=== PATIENT | male | born 1950 | race Caucasian/White ===

== ENCOUNTER 2024-07-19 19:59 | Inpatient (IN) | payer OTHER, MEDICAID ==
[~2024-07-19] VITALS: Ht 177.8 cm; Wt 76.5 kg
[~2024-07-19 19:59] MED LIST: APIX5TAB PO; PANT40T PO
--- NOTE | 2024-07-19 20:08 | ED.PDOC ---
History of Present Illness HPI Comments 73 y/o M is BIBA for syncope. Per EMS, patient arrived home after being, recently, discharged from [facility] for possible PNA when he passed-out and collapsed in his driveway. He was found hypotensive. History of CHF. Time Seen by MD: 20:00 Primary Care Provider: NONE Reviewed Notes: Nurses Notes, Twisting Machine Operator Notes, Medications, Allergies Allergies: Coded Allergies: NO KNOWN ALLERGIES (Unverified , 04/04/12) Home Meds No Active Prescriptions or Reported Meds Information Source: Patient, Emergency Med Personnel Mode of Arrival: EMS Severity: Moderate Timing: Hours Duration: Minutes Prehospital treatment: 12 Lead EKG, Accucheck, Evaporator Repairer, Oxygen Past Medical History PAST MEDICAL HISTORY: CHF Surgical History: Denies all surgeries Family History Family History: Unobtainable Social History Smoker: Cigarettes, Greater Than 1 Pack/Day Alcohol: Denies ETOH Use Drugs: Denies Drug Use Lives In: Home All Other Systems: Reviewed and Negative (Comprehensive systems review obtained and negative except for what is stated in the HPI.) Physical Exam General Appearance: No Apparent Distress, Normal HEENT: Normal ENT Inspection, Pharynx Normal, TMs Normal Neck: Full Range of Motion, Non-Tender, Normal, Normal Inspection Respiratory: Chest Non-Tender, No Accessory Muscle Use, No Respiratory Distress, Rales (bilateral lung [place] ) Cardiovascular: No Edema, No JVD, No Murmur, No Gallop, Normal Peripheral Pulses, Regular Rate/Rhythm, Other (hypotensive ) Breast Exam: Deferred Gastrointestinal: No Organomegaly, Non Tender, No Pulsatile Mass, Normal Bowel Sounds, Soft Genitalia: Deferred Pelvic: Deferred Rectal: Deferred Extremities: No calf tenderness, Normal capillary refill, Normal inspection, Normal range of motion, Non-tender, No pedal edema Musculoskeletal : Apperance: Normal Neurologic: Alert, groundskeeper II-XII nml as Tested, No Motor Deficits, Normal Affect, Normal Mood, No Sensory Deficits Cerebellar Function: Normal Reflexes: Normal Skin: Dry, Normal Color, Warm Lymphatic: No Adenopathy Was a procedure done? Was a procedure done?: No EKG EKG : Pulse Rate (adult): 104 [place]: Normal Cardiac Rhythm: Afib Block: None Hypertrophy: None ST: Normal Differential Dx Considerations may include: hypotension, electrolyte imbalance, dehydrations, viral syndrome, PNA, URI, closed head injury, among others X-Ray, Labs, Meds, VS Vital Signs Date Time Temp Pulse Resp B/P (MAP) Pulse Ox O2 Delivery O2 Flow Rate FiO2 07/19/24 20:51 127 26 99 Nasal Cannula* 2 28 07/19/24 20:48 104 07/19/24 20:39 98.5 127 26 143/80 (101) 99 98.5 07/19/24 20:09 97.4 137 29 93/55 (68) 96 97.4 07/19/24 20:00 104 Lab Test 07/19/24 21:13 07/19/24 20:25 07/19/24 20:15 Range/Units Troponin I High Sensitivity 54 59 *H </=54 ng/L White Blood Count 4.9 4.4-10.8 10^3/uL Red Blood Count 3.48 L 4.5-5.90 10^6/uL Hemoglobin 10.4 L 13.5-17.5 g/dL Hematocrit 30.7 L 41.0-53.0 % Mean Corpuscular Volume 88.3 80.0-100.0 fL Mean Corpuscular Hemoglobin 29.8 28.0-32.0 pg Mean Corpuscular Hemoglobin Concent 33.8 32.0-36.0 g/dL Red Cell Distribution Width 18.3 H 11.8-14.3 % Platelet Count 37 L 140-450 10^3/uL Mean Platelet Volume 10.3 6.9-10.8 fL Neutrophils (%) (Auto) 80.3 H 37.0-80.0 % Lymphocytes (%) (Auto) 7.6 L 10.0-50.0 % Monocytes (%) (Auto) 11.4 0.0-12.0 % Eosinophils (%) (Auto) 0.1 0.0-7.0 % Basophils (%) (Auto) 0.6 0.0-2.0 % Neutrophils # (Auto) 3.9 1.6-8.6 10 ^3/uL Lymphocytes # (Auto) 0.4 0.4-5.4 10 ^3/uL Monocytes # (Auto) 0.6 0-1.3 10 ^3/uL Eosinophils # (Auto) 0 0-0.8 10 ^3/uL Basophils # (Auto) 0 0-0.2 10 ^3/uL Nucleated Red Blood Cells 0.7 % Platelet Estimate Decreased Large Platelets Few Hypochromasia (manual) Slight Anisocytosis (manual) Slight Target Cells Few Prothrombin Time 26.6 H 9.3-11.8 sec Prothrombin Time INR 2.78 H 0.9-1.15 Activated Partial Thromboplast Time 44.7 H 24.5-34.5 SEC Sodium Level 148 H 136-145 mmol/L Potassium Level 4.1 3.5-5.1 mmol/L Chloride Level 114 H 98-107 mmol/L Carbon Dioxide Level 22 20-31 mmol/L Anion Gap 12 5-15 Blood Urea Nitrogen 55 H 9-23 mg/dL Creatinine 2.83 H 0.700-1.30 mg/dL Glomerular Filtration Rate Calc 23 >90 mL/min BUN/Creatinine Ratio 19.4 10.0-20.0 Serum Glucose 121 H 74-106 mg/dL Lactic Acid Level 5.6 *H 0.4-2.0 mmol/L Calcium Level 8.8 8.7-10.4 mg/dL Total Bilirubin 3.1 H 0.2-1.0 mg/dL Aspartate Amino Transferase (AST) 43 H 13-40 U/L Alanine Aminotransferase (ALT) 78 H 7-40 U/L Alkaline Phosphatase 729 H 46-116 U/L B-Type Natriuretic Peptide 209.12 0-100 pg/mL Total Protein 4.3 L 5.7-8.2 g/dL Albumin 2.9 L 3.2-4.8 g/dL Blood Gas Specimen Type Venous Blood Gas Sample Site Vbg - n/a Blood Gas Patient Temperature 37.0 Arterial Blood Date Drawn Dwight Test N/a Venous Blood pH 7.345 7.320-7.430 Venous Blood pCO2 at Patient Temp 39.3 38.0-54.0 mmHg Venous Blood pO2 at Patient Temp < 36.5 23.0-48.0 mmHg Venous Blood HCO3 21.0 L 22.0-29.0 mmol/L Venous Blood Base Excess -4.3 L -2.0-3.0 mmol/L Blood Gas Liter Flow 0.00 Blood Gas Modality Room air Blood Gas Spontaneous Rate 18 FiO2 % 21.0 Specimen Drawn By Fauzia leyva rn Current Medications Medications (Trade) Dose Ordered Sig/Scarlet Route Start Time Stop Time Status Last Admin Sodium Chloride 1,000 ml @ 1,000 mls/hr Q1H ONCE IVB 07/19/24 20:15 07/19/24 21:14 DC 07/19/24 20:[address] [address] Ph: [phone] DIAGNOSTIC IMAGING Diagnostic Imaging Report : [id number] Signed PATIENT: JUAN DIEGO KUHN ACCT: [id number] UNIT: [id number] : 1950 LOC: ER ROOM / BED: / AGE / SEX: 73 / M ADM STATUS: REG ER SERVICE 02 ORDERING PHYSICIAN: ROBIN CANALES MD PROCEDURE(s): CXRP - CHEST PORTABLE REASON: SOB ORDER NUMBER(s): [id number], ACCESSION NUMBER(s): [id number] CHEST RADIOGRAPH REASON FOR EXAM: Shortness of breath COMPARISON: None TECHNIQUE: One view of the chest is provided FINDINGS: The cardiomediastinal silhouette is within normal limits for size. There is diffuse interstitial prominence, likely chronic changes. There is right basilar airspace disease concerning for pneumonia. There is small right pleural effusion. There is no pneumothorax. No acute osseous abnormality is identified. IMPRESSION: Right basilar airspace disease concerning for pneumonia. Small right pleural effusion. ATED BY: WILLI PENA MD DICTATED DATE/TIME: 07/19/242135 SIGNED BY: WILLI PENA MD SIGNED DATE/TIME: 07/19/242135 CC: Time of 1ST Reevaluation: 20:30 Reevaluation 1ST: Unchanged Patient Education/Counseling: Diagnosis, Treatment, Other (need for admission ) Family Education/Counseling: No Family Present Sepsis focused exam: focus exam completed (In the initial resuscitation at l east 30 mL/kg of IV crystalloid fluid was NOT given within the first 3 hr due to concerns of fluid overload), time: (2099) Sepsis Sepsis Reasesment Focused Exam Sepsis focused exam: focus exam completed (In the initial resuscitation at least 30 mL/kg of IV crystalloid fluid was NOT given within the first 3 hr due to concerns of fluid overload), time: (2099) Orders: Laboratory Tests 07/19/24 20:25: Lactic Acid Level 5.6 Departure 1 Departure Time of Disposition: 22:16 Impression: Primary Impression: Respiratory failure with hypoxia Additional Impressions: Pneumonia Acute renal injury Disposition: ADMITTED INPATIENT Admit to: ICU Condition: Guarded e-Prescriptions No Active Prescriptions or Reported Meds Comments Syncope with Pneumonia and Acute Kidney Injury Chief Complaint: Syncope History of Present Illness: 73-year-old male presents via EMS following a syncopal episode at home. Patient was recently discharged from [facility] earlier today. While getting out of his car in his driveway, he experienced sudden collapse with brief loss of consciousness. EMS found patient to be hypotensive with systolic BP of 93. Patient demonstrates respiratory distress with bilateral basilar crackles on examination. Review of Systems: Constitutional: Syncope, weakness Respiratory: Shortness of breath, respiratory distress Cardiovascular: Syncope Other systems: Deferred due to patient condition Medications: No current medications documented Past Medical History: Recent hospitalization at [facility] (discharged today) Vital Signs: Blood Pressure: Systolic 93 mmHg Physical Exam: Respiratory: Bilateral basilar crackles and rales noted Other systems: Limited exam due to acute presentation Lab Results: WBC: 4.9 with left shift (80% neutrophils) BUN: 55 Creatinine: 2.83 Lactic acid: 5.6 Troponin: 59 (borderline elevated) Total bilirubin: 3.1 Imaging and Other Relevant Results: Chest X-ray: - Small right pleural effusion - Right lower lobe infiltrate consistent with pneumonia Medical Decision Making: Summary Statement: 73-year-old male with syncope, respiratory failure with hypoxia, community-acquired pneumonia, and acute kidney injury requiring hospital admission. Problem List: 1. Syncope 2. Community-acquired pneumonia 3. Acute kidney injury 4. Respiratory failure 5. Elevated lactate Differential Diagnosis: 1. Sepsis secondary to pneumonia 2. Cardiogenic syncope 3. Volume depletion 4. Medication effect 5. Pulmonary embolism ED Course: Patient received IV fluid resuscitation and was started on broad- spectrum antibiotics including IV Rocephin and IV azithromycin. Given multiple organ system involvement and need for continued monitoring, admission was arranged. Assessment and Plan: 1. Syncope: - Likely multifactorial due to combination of infection, possible dehydration, and cardiopulmonary compromise - Continuous cardiac monitoring during admission 2. Community-acquired Pneumonia: - Started on IV Rocephin and azithromycin - Continue antibiotics and respiratory support 3. Acute Kidney Injury: - Likely pre-renal due to volume depletion and infection - IV fluid resuscitation initiated - Monitor urine output and serial creatinine 4. Respiratory Failure: - Supplemental oxygen as needed - Monitor oxygen saturation 5. Disposition: - Admit to hospital for continued management and monitoring Billing Information: ICD-10: R55 - Syncope and collapse ICD-10: J18.9 - Pneumonia, unspecified organism ICD-10: N17.9 - Acute kidney failure, unspecified ICD-10: J96.00 - Acute respiratory failure Critical Care Note Critical Care Time?: Yes (35 min-critical care time only) Critical care comment: Total critical care time: Approximately 36 minutes Due to a high probability of clinically significant, life threatening deterioration, the patient required my highest level of preparedness to intervene emergently and I personally spent this critical care time directly and personally managing the patient. This critical care time included obtaining a history; examining the patient; pulse oximetry; ordering and review of studies; arranging urgent treatment with development of a management plan; evaluation of patient's response to treatment; frequent reassessment; and, discussions with other providers. This critical care time was performed to assess and manage the high probability of imminent, life-threatening deterioration that could result in multi-organ failure. It was exclusive of separately billable procedures and treating other patients. Stability Stability form required: No Heart Score Heart Score: Heart Score Response (Comments) Value History Moderate Suspicious 1 EKG Repolarization Disturb 1 Age >65 2 Risk Factors 1 or 2 risk factors 1 Troponin 1-2 x's Normal limit 1 Total 6 I personally scribed for ROBIN CANALES MD ([email or web address]) on 07/19/24 at 20:08. Electronically submitted by Aleln Ponce ([email or web address]). I personally scribed for ROBIN CANALES MD ([email or web address]) on 07/19/24 at 20:48. Electronically submitted by Allen Ponce ([email or web address]). I personally scribed for ROBIN CANALES MD ([email or web address]) on 07/19/24 at 22:11. Electronically submitted by Allen Ponce [email or web address]). ROBIN CANALES MD Jul 19, 2024 20:08
[2024-07-19] MEDS: SODIUM CHLORIDE 0.9% 1,000 ML IVB ONE (20:15)
[2024-07-19 20:46] LABS: Basophils # (auto) 0 10 ^3/uL (0-0.2); Eosinophils # (auto) 0 10 ^3/uL (0-0.8); Lymphocytes # (auto) 0.4 10 ^3/uL (0.4-5.4); Platelet Count (auto) 37 10^3/uL (140-450)
[2024-07-19 20:49] LABS: Basophils % (auto) 0.6 % (0.0-2.0); Eosinophils % (auto) 0.1 % (0.0-7.0); Hematocrit 30.7 % (41.0-53.0); Hemoglobin 10.4 g/dL (13.5-17.5); Lymphocytes % (auto) 7.6 % (10.0-50.0); Mean Corpuscular Hemoglobin 29.8 pg (28.0-32.0); Mean Corpuscular Hgb Conc. 33.8 g/dL (32.0-36.0); Mean Corpuscular Volume 88.3 fL (80.0-100.0); Monocytes # (auto) 0.6 10 ^3/uL (0-1.3); Monocytes % (auto) 11.4 % (0.0-12.0); Neutrophils # (auto) 3.9 10 ^3/uL (1.6-8.6); Neutrophils % (auto) 80.3 % (37.0-80.0); Nucleated Red Blood Cells % 0.7 %; Red Blood Cells 3.48 10^6/uL (4.5-5.90); Red Cell Distribution Width 18.3 % (11.8-14.3); White Blood Cell 4.9 10^3/uL (4.4-10.8)
[2024-07-19 20:51] VITALS: PULSE 127; RESP 26; O2SAT 99
[2024-07-19 20:54] LABS: Anion Gap 12 (5-15); BUN/Creatinine Ratio 19.4 (10.0-20.0); Calcium 8.8 mg/dL (8.7-10.4); Carbon Dioxide 22 mmol/L (20-31); INR 2.78 (0.9-1.15); Partial Thromboplastin Time 44.7 SEC (24.5-34.5); Potassium 4.1 mmol/L (3.5-5.1); Prothrombin Time 26.6 sec (9.3-11.8)
[2024-07-19 21:08] LABS: Alanine Aminotransferase 78 U/L (7-40); Albumin 2.9 g/dL (3.2-4.8); Alkaline Phosphatase 729 U/L (46-116); Aspartate Aminotransferase 43 U/L (13-40); Bilirubin, Total 3.1 mg/dL (0.2-1.0); Blood Urea Nitrogen 55 mg/dL (9-23); Chloride 114 mmol/L (98-107); Glucose 121 mg/dL (74-106); Sodium 148 mmol/L (136-145); Total Protein 4.3 g/dL (5.7-8.2)
[2024-07-19 21:12] LABS: Lactic Acid w/Reflex 5.6 mmol/L (0.4-2.0)
--- NOTE | 2024-07-19 21:39 | DVH ---
CHEST RADIOGRAPH REASON FOR EXAM: Shortness of breath COMPARISON: None TECHNIQUE: One view of the chest is provided FINDINGS: The cardiomediastinal silhouette is within normal limits for size. There is diffuse interst itial prominence, likely chronic changes. There is right basilar airspace disease concerning for pne umonia. There is small right pleural effusion. There is no pneumothorax. No acute osseous abnormalit y is identified. IMPRESSION: Right basilar airspace disease concerning for pneumonia. Small right pleural effusion.
[2024-07-19 22:06] LABS: Anisocytosis Slight; Hypochromia Slight; Large Platelets FEW; Platelet Estimate Decreased; Target Cell FEW
[2024-07-19] MEDS: AZITHROMYCIN 500MG/ 250ML 250 ML IV ONE (22:38)
[2024-07-19] MEDS: cefTRIAXone 1GM/50ML D5W 50 ML IV ONE (22:38)
[2024-07-19] MEDS ORDERED: NITROGLYCERIN 0.4 MG SL TAB SL PRN (23:15)
[2024-07-19] MEDS ORDERED: MORPHINE SULFATE INJ 2 MG/ml SYRG IV PRN (23:15)
[2024-07-19] MEDS ORDERED: ACETAMINOPHEN 325 MG TAB PO PRN (23:15)
[2024-07-19 23:23] VITALS: BP 82/56; PULSE 77; RESP 18; TEMP 98.5; O2SAT 99
[2024-07-19] MEDS: ALBUMIN 5% 250 ML IV ONE (23:38)
[2024-07-20] VITALS (10 sets, daily range): BP systolic 108–119; BP diastolic 63–72; PULSE 74–80; RESP 16–20; TEMP 97.4–98; O2SAT 90–100
--- NOTE | 2024-07-20 03:04 | DVHHP2 ---
History of Present Illness Reason for Visit: Shortness for breath History of Present Illness 73-year-old male presents for evaluation of shortness for breath. Patient presented with complaints of dizziness and near syncopal episode. On arrival patient was noted to be in AFib with a rapid ventricular response. His blood pressure was in the 70s. Patient has spontaneously converted currently normal sinus rhythm blood pressure is marginal at the 90s. Reports shortness for breath with a productive cough. Denies fever or chills. No other acute complaints. Past Medical History CHF, hypertension, atrial fibrillation Past Surgical History Denies Family History Noncontributory Smoke: <1 pack per day ALCOHOL: none Drugs: None Lives: with Family Review of Systems Review of Systems Review of systems are currently negative otherwise addressed in HPI. Allergies: Coded Allergies: NO KNOWN ALLERGIES (Unverified , 04/04/12) Medications Current Medications Medications Dose Ordered Sig/Scarlet Route Start Time Stop Time Status Last Admin Dose Admin Ceftriaxone Sodium 50 ml @ 100 mls/hr DAILY@09 IV 07/20/24 09:00 Azithromycin 250 ml @ 125 mls/hr DAILY IV 07/20/24 10:00 UNV Amiodarone HCl 200 mg Q12HR PO 07/20/24 10:00 Pantoprazole Sodium 40 mg DAILY@0600 PO 07/20/24 06:00 Apixaban 5 mg BID PO 07/20/24 10:00 UNV Albuterol 2.5 mg Q6HPRN PRN NEB 07/19/24 23:15 Ondansetron HCl 4 mg Q4HP PRN IV 07/19/24 23:15 Acetaminophen 650 mg Q6HP PRN PO 07/19/24 23:15 Nitroglycerin 0.4 mg Q5MINP PRN SL 07/19/24 23:15 Morphine Sulfate 2 mg Q30M PRN IV 07/19/24 23:15 Exam Vital Signs Vital Signs Date Time Temp Pulse Resp B/P (MAP) Pulse Ox O2 Delivery O2 Flow Rate FiO2 07/20/24 01:00 79 18 81/54 (63) 99 07/20/24 00:02 Nasal Cannula 3.0 07/20/24 00:02 32 07/19/24 23:23 98.5 98.5 Exam Gen: 73-year-old male in mild distress Skin: Warm, dry, normal color and texture, no rash. HEENT: Normocephalic atraumatic, mucous membranes moist and pink. Neck: Cervical and supraclavicular nodes normal without enlargement, trachea is midline, thyroid gland is normal without masses. Pulmonary: Clear to auscultation and percussion bilaterally. Cardiac: Regular rate and rhythm. No murmur Abdomen: Soft, nontender, nondistended, bowel sounds present all 4 quadrants, no guarding, no rigidity, no organomegaly. Extremities: No cyanosis, clubbing, no edema Neuro: Cranial nerves II through XII grossly intact, normal affect and speech, no focal motor deficits. Labs/Xrays ORDERING PHYSICIAN: ROBIN CANALES MD PROCEDURE(s): CXRP - CHEST PORTABLE REASON: SOB ORDER NUMBER(s): [id number], ACCESSION NUMBER(s): [id number] CHEST RADIOGRAPH REASON FOR EXAM: Shortness of breath COMPARISON: None TECHNIQUE: One view of the chest is provided FINDINGS: The cardiomediastinal silhouette is within normal limits for size. There is diffuse interstitial prominence, likely chronic changes. There is right basilar airspace disease concerning for pneumonia. There is small right pleural effusion. There is no pneumothorax. No acute osseous abnormality is identified. IMPRESSION: Right basilar airspace disease concerning for pneumonia. Small right pleural effusion. Labs Test 07/20/24 00:18 07/19/24 22:15 07/19/24 20:25 07/19/24 20:15 Range/Units Troponin I High Sensitivity 57 *H </=54 ng/L Lactic Acid Level 2.8 *H 0.4-2.0 mmol/L White Blood Count 4.9 4.4-10.8 10^3/uL Red Blood Count 3.48 L 4.5-5.90 10^6/uL Hemoglobin 10.4 L 13.5-17.5 g/dL Hematocrit 30.7 L 41.0-53.0 % Mean Corpuscular Volume 88.3 80.0-100.0 fL Mean Corpuscular Hemoglobin 29.8 28.0-32.0 pg Mean Corpuscular Hemoglobin Concent 33.8 32.0-36.0 g/dL Red Cell Distribution Width 18.3 H 11.8-14.3 % Platelet Count 37 L 140-450 10^3/uL Mean Platelet Volume 10.3 6.9-10.8 fL Neutrophils (%) (Auto) 80.3 H 37.0-80.0 % Lymphocytes (%) (Auto) 7.6 L 10.0-50.0 % Monocytes (%) (Auto) 11.4 0.0-12.0 % Eosinophils (%) (Auto) 0.1 0.0-7.0 % Basophils (%) (Auto) 0.6 0.0-2.0 % Neutrophils # (Auto) 3.9 1.6-8.6 10 ^3/uL Lymphocytes # (Auto) 0.4 0.4-5.4 10 ^3/uL Monocytes # (Auto) 0.6 0-1.3 10 ^3/uL Eosinophils # (Auto) 0 0-0.8 10 ^3/uL Basophils # (Auto) 0 0-0.2 10 ^3/uL Nucleated Red Blood Cells 0.7 % Platelet Estimate Decreased Large Platelets Few Hypochromasia (manual) Slight Anisocytosis (manual) Slight Target Cells Few Prothrombin Time 26.6 H 9.3-11.8 sec Prothrombin Time INR 2.78 H 0.9-1.15 Activated Partial Thromboplast Time 44.7 H 24.5-34.5 SEC Sodium Level 148 H 136-145 mmol/L Potassium Level 4.1 3.5-5.1 mmol/L Chloride Level 114 H 98-107 mmol/L Carbon Dioxide Level 22 20-31 mmol/L Anion Gap 12 5-15 Blood Urea Nitrogen 55 H 9-23 mg/dL Creatinine 2.83 H 0.700-1.30 mg/dL Glomerular Filtration Rate Calc 23 >90 mL/min BUN/Creatinine Ratio 19.4 10.0-20.0 Serum Glucose 121 H 74-106 mg/dL Calcium Level 8.8 8.7-10.4 mg/dL Total Bilirubin 3.1 H 0.2-1.0 mg/dL Aspartate Amino Transferase (AST) 43 H 13-40 U/L Alanine Aminotransferase (ALT) 78 H 7-40 U/L Alkaline Phosphatase 729 H 46-116 U/L B-Type Natriuretic Peptide 209.12 0-100 pg/mL Total Protein 4.3 L 5.7-8.2 g/dL Albumin 2.9 L 3.2-4.8 g/dL Blood Gas Specimen Type Venous Blood Gas Sample Site Vbg - n/a Blood Gas Patient Temperature 37.0 Arterial Blood Date Drawn Dwight Test N/a Venous Blood pH 7.345 7.320-7.430 Venous Blood pCO2 at Patient Temp 39.3 38.0-54.0 mmHg Venous Blood pO2 at Patient Temp < 36.5 23.0-48.0 mmHg Venous Blood HCO3 21.0 L 22.0-29.0 mmol/L Venous Blood Base Excess -4.3 L -2.0-3.0 mmol/L Blood Gas Liter Flow 0.00 Blood Gas Modality Room air Blood Gas Spontaneous Rate 18 FiO2 % 21.0 Specimen Drawn By Fauzia leyva rn Assessment/Plan Assessment/Plan Assessment Acute hypoxic respiratory failure Community-acquired pneumonia Sepsis Acute kidney injury Secondary coagulopathy Plan Admit the patient to telemetry to the hospitalist Rocephin/azithromycin Med nebs Resume home medications Hold antihypertensives Continue treatment per orders Plan discussed with: Patient My Orders Orders - RITCHIEAMYPEPE AGACNP Procedure Category Date Status Time Ceftriaxone 1gm/50ml PHA 07/20/24 In Process D5w (Rocephin) 09:00 Azithromycin 500mg/ PHA 07/20/24 Pending 250ml (Zithromax 50 10:00 Amiodarone Tablet PHA 07/20/24 In Process (Cordarone Tablet) 10:00 Pantoprazole Tablet PHA 07/20/24 In Process (Protonix Tablet) 06:00 Apixaban (Eliquis) PHA 07/20/24 Pending 10:00 Albuterol Medneb PHA 07/19/24 In Process (Ventolin Medneb) 23:15 Renal DIET 07/20/24 Transmitted Standard(2gna,3gk,Lopho) Breakfast Ondansetron Hcl PHA 07/19/24 In Process (Zofran) 23:15 Complete Blood Count LAB 07/20/24 Logged 04:00 Comprehensive LAB 07/20/24 Logged Metabolic Panel 04:00 Echo 2d Mode Cardiac US 07/19/24 Logged DOP 23:05 Condition: Fair IVAN 07/19/24 In Process 23:05 Acetaminophen Tablet PHA 07/19/24 In Process (Tylenol Tablet) 23:15 Bedrest With Bathroom IVAN 07/19/24 In Process Privileg 23:05 Nitroglycerin PHA 07/19/24 In Process Sublingual (Ntrostat 23:15 Morphine Sulfate PHA 07/19/24 In Process Injection 23:15 Stat Ekg For Chest IVAN 07/19/24 In Process Pain 23:05 Notify Md Of Changes IVAN 07/19/24 In Process From Base 23:05 Sales Planning Coordinator For IVAN 07/19/24 In Process 24 Hours 23:05 Emergency Dysrhythmia IVAN 07/19/24 In Process Protocol 23:05 Rhythm Strips Once IVAN 07/19/24 In Process Every Shift 23:05 Oxygen By Nasal RT 07/19/24 Transmitted Cannula 23:05 Respiratory Culture SILVERIO 07/19/24 Logged W/ Gs 23:05 Admit ADMIT 07/19/24 Verified 23:05 Date of Service: Jul 19, 2024 Billing Provider: AMY RITCHIE Common Visit Codes: [id number] INP/OBS CARE (HIGH) AMY RITCHIE Jul 20, 2024 03:04
[2024-07-20] MEDS: PANTOPRAZOLE 40 MG TAB PO SCH (06:02)
[2024-07-20 06:32] LABS: Anion Gap 10 (5-15); Aspartate Aminotransferase 37 U/L (13-40); BUN/Creatinine Ratio 19.2 (10.0-20.0); Carbon Dioxide 24 mmol/L (20-31); Glucose 102 mg/dL (74-106); Potassium 3.9 mmol/L (3.5-5.1)
[2024-07-20 06:41] LABS: Alanine Aminotransferase 56 U/L (7-40); Albumin 2.6 g/dL (3.2-4.8); Alkaline Phosphatase 545 U/L (46-116); Bilirubin, Total 2.8 mg/dL (0.2-1.0); Blood Urea Nitrogen 51 mg/dL (9-23); Calcium 8.2 mg/dL (8.7-10.4); Chloride 114 mmol/L (98-107); Sodium 148 mmol/L (136-145); Total Protein 3.8 g/dL (5.7-8.2)
[2024-07-20 06:43] LABS: Basophils # (auto) 0 10 ^3/uL (0-0.2); Eosinophils # (auto) 0 10 ^3/uL (0-0.8); Eosinophils % (auto) 0.1 % (0.0-7.0); Hemoglobin 7.9 g/dL (13.5-17.5); Lymphocytes # (auto) 0.3 10 ^3/uL (0.4-5.4); Monocytes # (auto) 0.5 10 ^3/uL (0-1.3); Platelet Count (auto) 40 10^3/uL (140-450)
[2024-07-20 06:47] LABS: Basophils % (auto) 0.2 % (0.0-2.0); Hematocrit 23.1 % (41.0-53.0); Lymphocytes % (auto) 8.3 % (10.0-50.0); Mean Corpuscular Hemoglobin 30.4 pg (28.0-32.0); Mean Corpuscular Hgb Conc. 34.2 g/dL (32.0-36.0); Mean Corpuscular Volume 88.7 fL (80.0-100.0); Monocytes % (auto) 13.2 % (0.0-12.0); Neutrophils # (auto) 2.9 10 ^3/uL (1.6-8.6); Neutrophils % (auto) 78.2 % (37.0-80.0); Nucleated Red Blood Cells % 0.4 %; Red Cell Distribution Width 18.5 % (11.8-14.3); White Blood Cell 3.7 10^3/uL (4.4-10.8)
[2024-07-20] MEDS: cefTRIAXone 1GM/50ML D5W 50 ML IV SCH (09:18)
[2024-07-20 09:31] LABS: Urine Bacteria None Seen /hpf (None Seen)
[2024-07-20 09:43] LABS: Urine Amorphous Crystal FEW /hpf (None Seen); Urine Blood TRACE /uL (Negative); Urine Clarity Turbid (Clear); Urine Color Yellow (Yellow); Urine Protein, UAD Negative (Negative); Urine Specific Gravity 1.013 (1.001-1.035); Urine Squamous Epithelial Cell FEW /hpf (<5); Urine Urobilinogen Normal (Negative); Urine WBC 3 /HPF (0-3)
[2024-07-20] MEDS: APIXABAN 5 MG TAB PO SCH (10:00)
[2024-07-20] MEDS: AMIODARONE HCL 200 MG TAB PO SCH (10:18)
[2024-07-20] MEDS: AZITHROMYCIN 500MG/ 250ML 250 ML IV SCH (10:20)
--- NOTE | 2024-07-20 10:45 | ECG ---
[facility] Test Date: 2024-07-19 Test Time: 20:00:52 Pat Name: JUAN DIEGO KUHN Department: ED Room: [address] [place] [address] Gender: M Certified Marine Mechanic: YEN : 1950 Requested By: ROBIN CANALES Order Number: [id number] Reading MD: Dante Fu Measurements Intervals [place] Rate: 104 P: 0 ND: 0 QRS: -90 QRSD: 120 T: 83 QT: 359 QTc: 473 Interpretive Statements Atrial flutter IVCD, consider atypical RBBB Electronically Signed On 07-20-2024 14:59:29 PDT by Dante Fu Please click the below link to view image of tracing.
--- NOTE | 2024-07-20 14:29 | DVHSR ---
APPROVED REPORT EXAM: LIMITED Two-dimensional and M-mode echocardiogram. Blood Pressure: 81/54 mmHg INDICATION EF RISK FACTORS Height: 5' 10", Weight: 160 DIMENSIONS LVDd4.2 (3.8-5.7cm)LA (2D)3.7 (1.9-4.0cm)Aortic Root (2.0-3.7cm) LVDs2.9 (2.5-4.0cm)LA (MM) (1.9-4.0cm)Aortic Cusp Exc (1.5-2.0cm) EF (%) 57.0 (55-70%)Rt. Atrium4.0 (1.9-4.0cm)Asc. Aorta cm IVSd0.9 (0.7-1.1cm)RV (D) (1.8-2.4cm) PWd0.9 (0.7-1.1cm) Mitral Valve MitralMitral Stenosis E wave0.60m/sMV Mean GR.mmHg A wave0.70m/sMV Peak GR.mmHg E/A ratio0.92D MVAcm2 Aortic Valve Aortic ValveAortic Stenosis V10.70m/Mine Mean GR.4mmHg V21.40m/Mine Peak GR.8mmHg LVOT Diameter2.0 (1.8-2.4cm)Doppler AVA1.57cm2 Other Information Quality : Technically LimitedRhythm : Technically limited study due to body habitus. Conclusion Technically good study. Sinus rhythm. Normal chamber sizes. Valves are normal. EF of 60% with normal RV function. Dopplers unremarkable. No pericardial effusion masses or vegetations.
--- NOTE | 2024-07-20 16:45 | DVH ---
Technique: Real-time ultrasound imaging of the abdomen was performed with grayscale and color Doppler . Indication: Rule out liver disease Comparison: None Findings: Liver measures 17. cm. It is increased in echogenicity and echotexture without focal mass. Portal ve in is normal in caliber and demonstrates normal hepatopetal flow. Gallbladder demonstrates no evidence for cholelithiasis. There is no pericholecystic fluid. The wall thickness is normal. The common bile duct measures 4 mm. No intrahepatic biliary ductal dilatation. The right kidney measures 8.9 cm. There is no hydronephrosis or sonographic evidence of nephrolithias is. The visualized portion of the pancreas is unremarkable. The visualized portion of the IVC is unremarkable. Impression: 1. Echogenic liver which can be seen with hepatic steatosis, cirrhosis. 2. Hepatomegaly
--- NOTE | 2024-07-20 16:46 | DVH ---
Bilateral Chest Sonogram Date: 07/20/2024 03:58 PM Clinical history: Rt sided Pleural effusion Findings: Small bilateral pleural effusions.. IMPRESSION: 1. As above END IMPRESSION:
--- NOTE | 2024-07-20 17:06 | DVHPNRES ---
Progress Note Date Seen: Jul 20, 2024 Resident Creating Document: HUMPHREY CASTELAN RESIDENT Medical Necessity Reason Pt with a Central, PICC or Fol: No Subjective Review of Systems 73 M with a history of atrial fibrillation who presents with recent hospitalization for chest pain and newly diagnosed pneumonia. The patient was discharged from [facility] after a 5-day stay earlier this week but had to be readmitted due to a syncopal episode. He reports experiencing chest pain, which prompted the initial hospitalization at [facility]. During that stay, pneumonia was diagnosed, After discharge, while being picked up by his nephew and a friend, the patient experienced a blackout episode near their apartment. This led to calling an ambulance and subsequent readmission to the hospital. The patient mentions feeling weak , Regarding substance use, the patient reports quitting smoking about 3 months ago after a 50-year history of smoking half a pack per day. They also state they no longer drink alcohol, having previously consumed beer daily. The patient denies any history of recreational drug use. CONSTITUTIONAL: Denies weight loss, fever and chills. HEENT: Denies changes in vision and hearing. RESPIRATORY: Denies SOB and cough. CV: Denies palpitations and chest pain. GI: Denies abdominal pain, nausea, vomiting and diarrhea. : Denies dysuria and urinary frequency. MSK: Denies myalgia and joint pain. SKIN: Denies rash and pruritus. NEUROLOGICAL: Denies headache Objective vital signs Vital Sign Date Time Temp Pulse Resp B/P (MAP) Pulse Ox O2 Delivery O2 Flow Rate FiO2 07/20/24 15:51 98.0 80 20 119/64 (82) 98 98.0 07/20/24 08:30 Nasal Cannula* 2 28 Total Intake and Output 07/19/24 07/19/24 07/20/24 14:59 22:59 06:59 Intake Total 1000 ml 550 ml Balance 1000 ml 550 ml medications Current Medications Medications Dose Ordered Sig/Scarlet Route Start Time Stop Time Status Last Admin Dose Admin Ceftriaxone Sodium 50 ml @ 100 mls/hr DAILY@09 IV 07/20/24 09:00 07/20/24 09:18 100 MLS/HR Azithromycin 250 ml @ 125 mls/hr DAILY IV 07/20/24 10:00 07/20/24 10:20 125 MLS/HR Amiodarone HCl 200 mg Q12HR PO 07/20/24 10:00 07/20/24 10:18 200 MG Pantoprazole Sodium 40 mg DAILY@0600 PO 07/20/24 06:00 07/20/24 06:02 40 MG Apixaban 5 mg BID PO 07/20/24 10:00 Hold Albuterol 2.5 mg Q6HPRN PRN NEB 07/19/24 23:15 Ondansetron HCl 4 mg Q4HP PRN IV 07/19/24 23:15 Acetaminophen 650 mg Q6HP PRN PO 07/19/24 23:15 Nitroglycerin 0.4 mg Q5MINP PRN SL 07/19/24 23:15 Morphine Sulfate 2 mg Q30M PRN IV 07/19/24 23:15 Examination GENERAL: Not in acute distress. HEENT: EOMI, Moist mucous membranes. No scleral icterus. No cervical lymphadenopathy. LUNGS: Clear to auscultation bilaterally. No accessory muscle use. CARDIOVASCULAR: Regular rate and rhythm. No murmur. No JVD. ABDOMEN: Soft, nontender and nondistended. No palpable masses. EXTREMITIES: No edema. Nontender. SKIN: No rashes or lesions. Warm. NEUROLOGIC: Alert and oriented X3 laboratory and microbiology Laboratory Tests 07/20/24 05:20 Test 07/20/24 05:20 Range/Units Serum Glucose 102 74-106 mg/dL Problem List/Assessment/Plan Problem List/Assessment/Plan # Acute hypoxic respiratory failure due to Pneumonia # possible Gram-positive/Gram-negative bacterial pneumonia - CXR shows: Right basilar airspace disease concerning for pneumonia. Small right pleural effusion. - 2 L supplemental oxygen, patient was not on oxygen therapy at home. - Chest US: Small bilateral pleural effusions. - Continue Rocephin and azithromycin - Monitor oxygen saturation and continue oxygen therapy at 2 liters - Perform echocardiogram to assess cardiac function # Atrial Fibrillation, not RVR - Continue current blood thinner medication (specific medication not mentioned) - Arrange follow-up with a pin sticker after discharge for management of heart rate and overall cardiac care # possible acute on chronic systolic/diastolic heart failure - Chest US: Small bilateral pleural effusions.. - bilateral pedal edema present, bilateral pleural effusion presents - ordered echocardiogram - request medical record from [facility] # Recent Syncope, etiology unknown, most likely due to possible hypoxic respiratory failure - Monitor fluid status and encourage oral hydration if appropriate - Assess need for home oxygen therapy before discharge # Tobacco and Alcohol Use History - Encourage continued abstinence from smoking and alcohol - Consider referral for smoking cessation support if needed # elevated liver enzyme # thrombocytopenia # possible alcoholic liver disease - ordered liver ultrasound - we will follow up labs DVT prophylaxis: Eliquis for AFib, hold Eliquis due to thrombocytopenia GI prophylaxis: PPI Goal of care discussed with patient for 32 minutes: Full code Plan discussed with Dr. STODDARD Plan discussed with: Patient My Orders My Orders Orders - HUMPHREY CASTELAN RESIDENT Procedure Category Date Status Time Obtain Mr From Other ORDERS 07/20/24 Transmitted Facility 14:36 LIVER US 07/20/24 Resulted 14:36 Chest Ultrasound US 07/20/24 Resulted 14:36 Rapid Influenza A&B LAB 07/20/24 Logged 14:36 Covid19 Antigen Janee LAB 07/20/24 Logged Complete Blood Count LAB 07/21/24 Verified 04:00 Comprehensive LAB 07/21/24 Verified Metabolic Panel 04:00 Mrsa Screen SILVERIO 07/20/24 Uncollected 15:50 Date of Service: Jul 20, 2024 Billing Provider: LOLLY KUMAR MD Common Visit Codes: [id number] INP/OBS CARE(HIGH) HUMPHREY CASTELAN RESIDENT Jul 20, 2024 17:06 LOLLY KUMAR MD Aug 01, 2024 09:21
[2024-07-20 21:25] LABS: COVID19 ANTIGEN SOFIA FIA NEGATIVE (NEGATIVE); Rapid Influenza A Negative (Negative); Rapid Influenza B Negative (Negative)
[2024-07-21] VITALS (12 sets, daily range): BP systolic 92–141; BP diastolic 66–75; PULSE 69–85; RESP 16–18; TEMP 97.5–98.6; O2SAT 93–100
[2024-07-21 06:00] LABS: Basophils # (auto) 0 10 ^3/uL (0-0.2); Eosinophils # (auto) 0 10 ^3/uL (0-0.8); Eosinophils % (auto) 0.1 % (0.0-7.0); Hematocrit 24.6 % (41.0-53.0); Hemoglobin 8.4 g/dL (13.5-17.5); Lymphocytes # (auto) 0.3 10 ^3/uL (0.4-5.4); Monocytes # (auto) 0.5 10 ^3/uL (0-1.3); Neutrophils # (auto) 3.9 10 ^3/uL (1.6-8.6); Nucleated Red Blood Cells % 0.4 %; Red Blood Cells 2.79 10^6/uL (4.5-5.90); White Blood Cell 4.7 10^3/uL (4.4-10.8)
[2024-07-21 06:02] LABS: Basophils % (auto) 0.2 % (0.0-2.0); Lymphocytes % (auto) 6.2 % (10.0-50.0); Mean Corpuscular Volume 88.3 fL (80.0-100.0); Monocytes % (auto) 10.3 % (0.0-12.0); Neutrophils % (auto) 83.2 % (37.0-80.0); Platelet Count (auto) 48 10^3/uL (140-450); Red Cell Distribution Width 19.2 % (11.8-14.3)
[2024-07-21 06:23] LABS: Anion Gap 10 (5-15); BUN/Creatinine Ratio 18.7 (10.0-20.0); Calcium 8.8 mg/dL (8.7-10.4); Carbon Dioxide 25 mmol/L (20-31); Potassium 3.7 mmol/L (3.5-5.1)
[2024-07-21 06:24] LABS: Aspartate Aminotransferase 34 U/L (13-40)
[2024-07-21 06:26] LABS: Alanine Aminotransferase 62 U/L (7-40); Albumin 2.7 g/dL (3.2-4.8); Alkaline Phosphatase 699 U/L (46-116); Blood Urea Nitrogen 49 mg/dL (9-23); Chloride 115 mmol/L (98-107); Glucose 110 mg/dL (74-106); Sodium 150 mmol/L (136-145); Total Protein 4.1 g/dL (5.7-8.2)
[2024-07-21] MEDS: SOD CHL 0.45% 1,000 ML IV ONE (11:15)
--- NOTE | 2024-07-21 11:18 | DVHPNRES ---
Progress Note Date Seen: Jul 21, 2024 Resident Creating Document: HUMPHREY CASTELAN RESIDENT Medical Necessity Reason Pt with a Central, PICC or Fol: No Subjective Review of Systems Patient seen and examined at bedside, patient is still on all days 2 L of oxygen and feeling of mild shortness of breath, patient is feeling much better than before. Objective vital signs Vital Sign Date Time Temp Pulse Resp B/P (MAP) Pulse Ox O2 Delivery O2 Flow Rate FiO2 07/21/24 09:00 98.3 81 18 113/70 (84) 98 98.3 07/21/24 08:03 Nasal Cannula* 2 28 Total Intake and Output 07/20/24 07/20/24 07/21/24 15:00 23:00 07:00 Intake Total 300 ml 0 ml 400 ml Output Total 300 ml 0 ml Balance 0 ml 0 ml 400 ml medications Current Medications Medications Dose Ordered Sig/Scarlet Route Start Time Stop Time Status Last Admin Dose Admin Ceftriaxone Sodium 50 ml @ 100 mls/hr DAILY@09 IV 07/20/24 09:00 07/21/24 09:01 100 MLS/HR Azithromycin 250 ml @ 125 mls/hr DAILY IV 07/20/24 10:00 07/21/24 09:01 125 MLS/HR Amiodarone HCl 200 mg Q12HR PO 07/20/24 10:00 07/21/24 09:00 200 MG Pantoprazole Sodium 40 mg DAILY@0600 PO 07/20/24 06:00 07/21/24 05:13 40 MG Apixaban 5 mg BID PO 07/20/24 10:00 Albuterol 2.5 mg Q6HPRN PRN NEB 07/19/24 23:15 Ondansetron HCl 4 mg Q4HP PRN IV 07/19/24 23:15 Acetaminophen 650 mg Q6HP PRN PO 07/19/24 23:15 Nitroglycerin 0.4 mg Q5MINP PRN SL 07/19/24 23:15 Morphine Sulfate 2 mg Q30M PRN IV 07/19/24 23:15 Examination GENERAL: Not in acute distress. HEENT: EOMI, Moist mucous membranes. No scleral icterus. No cervical lymphadenopathy. LUNGS: Clear to auscultation bilaterally. No accessory muscle use. CARDIOVASCULAR: Regular rate and rhythm. No murmur. No JVD. ABDOMEN: Soft, nontender and nondistended. No palpable masses. EXTREMITIES: No edema. Nontender. SKIN: No rashes or lesions. Warm. NEUROLOGIC: Alert and oriented X3 laboratory and microbiology Laboratory Tests 07/21/24 04:35 Test 07/21/24 04:35 Range/Units Serum Glucose 110 H 74-106 mg/dL Microbiology Date/Time Source Procedure Growth Status 07/19/24 20:25 Blood Blood Culture - Preliminary NO GROWTH AFTER 24 HOURS OF INCUBATION. Resulted Problem List/Assessment/Plan Problem List/Assessment/Plan # Acute hypoxic respiratory failure due to Pneumonia # possible Gram-positive/Gram-negative bacterial pneumonia - CXR shows: Right basilar airspace disease concerning for pneumonia. Small right pleural effusion. - 2 L supplemental oxygen, patient was not on oxygen therapy at home. - Chest US: Small bilateral pleural effusions. - Continue Rocephin and azithromycin - Monitor oxygen saturation and continue oxygen therapy at 2 liters - Perform echocardiogram to assess cardiac function # Atrial Fibrillation, not RVR - Continue current blood thinner medication (specific medication not mentioned) - Arrange follow-up with a power wood sawyer after discharge for management of heart rate and overall cardiac care # possible acute on chronic systolic/diastolic heart failure - Chest US: Small bilateral pleural effusions.. - bilateral pedal edema present, bilateral pleural effusion presents - ordered echocardiogram - request medical record from [facility] # Recent Syncope, etiology unknown, most likely due to possible hypoxic respiratory failure - Monitor fluid status and encourage oral hydration if appropriate - Assess need for home oxygen therapy before discharge # Tobacco and Alcohol Use History - Encourage continued abstinence from smoking and alcohol - Consider referral for smoking cessation support if needed # elevated liver enzyme # thrombocytopenia # possible alcoholic liver disease - ordered liver ultrasound - we will follow up labs DVT prophylaxis: Eliquis for AFib, hold Eliquis due to thrombocytopenia GI prophylaxis: PPI Goal of care discussed with patient for 21 minutes: Full code Plan discussed with Dr. STODDARD Plan discussed with: Patient My Orders My Orders Orders - HUMPHREY CASTELAN RESIDENT Procedure Category Date Status Time Obtain Mr From Other ORDERS 07/20/24 Transmitted Facility 14:36 LIVER US 07/20/24 Resulted 14:36 Chest Ultrasound US 07/20/24 Resulted 14:36 Mrsa Screen SILVERIO 07/20/24 In Process 17:07 Metoprolol Tartrate PHA 07/21/24 Verified Tablet (Lopressor Ta 22:00 1/2 Ns PHA 07/21/24 Verified 11:15 Basic Metabolic Panel LAB 07/22/24 Verified 04:00 Complete Blood Count LAB 07/22/24 Verified 04:00 Date of Service: Jul 21, 2024 Billing Provider: LOLLY KUMAR MD Common Visit Codes: [id number] INP/OBS CARE(HIGH) HUMPHREY CASTELAN RESIDENT Jul 21, 2024 11:18 LOLLY KUMAR MD Aug 01, 2024 09:25
[2024-07-21] MEDS ORDERED: METO-289 PO (14:33)
[2024-07-21] MEDS ORDERED: AMIO200T33 PO (14:34)
[2024-07-21 18:42] LABS: Potassium 3.6 mmol/L (3.5-5.1)
[2024-07-21 18:43] LABS: Anion Gap 8 (5-15); Carbon Dioxide 28 mmol/L (20-31)
[2024-07-21 18:57] LABS: Blood Urea Nitrogen 47 mg/dL (9-23)
[2024-07-21 18:58] LABS: BUN/Creatinine Ratio 18.4 (10.0-20.0); Calcium 8.3 mg/dL (8.7-10.4); Chloride 112 mmol/L (98-107); Glucose 120 mg/dL (74-106); Sodium 148 mmol/L (136-145)
[2024-07-21] MEDS: METOPROLOL TARTRATE 25 MG TAB PO SCH (21:27)
[2024-07-22] VITALS (11 sets, daily range): BP systolic 125–147; BP diastolic 71–83; PULSE 64–78; RESP 16–18; TEMP 97.4–98.8; O2SAT 92–100
[2024-07-22 06:12] LABS: Basophils # (auto) 0 10 ^3/uL (0-0.2); Eosinophils # (auto) 0 10 ^3/uL (0-0.8); Hemoglobin 8.2 g/dL (13.5-17.5); Lymphocytes # (auto) 0.2 10 ^3/uL (0.4-5.4); Monocytes # (auto) 0.4 10 ^3/uL (0-1.3); Nucleated Red Blood Cells % 0.3 %
[2024-07-22 06:15] LABS: Basophils % (auto) 0.2 % (0.0-2.0); Eosinophils % (auto) 0.1 % (0.0-7.0); Hematocrit 24.2 % (41.0-53.0); Lymphocytes % (auto) 4.7 % (10.0-50.0); Mean Corpuscular Hemoglobin 30.4 pg (28.0-32.0); Mean Corpuscular Volume 89.4 fL (80.0-100.0); Monocytes % (auto) 8.9 % (0.0-12.0); Neutrophils % (auto) 86.1 % (37.0-80.0); Platelet Count (auto) 59 10^3/uL (140-450); Red Blood Cells 2.71 10^6/uL (4.5-5.90); Red Cell Distribution Width 21.1 % (11.8-14.3); White Blood Cell 4.7 10^3/uL (4.4-10.8)
[2024-07-22 06:52] LABS: Anion Gap 9 (5-15); Aspartate Aminotransferase 35 U/L (13-40); BUN/Creatinine Ratio 17.1 (10.0-20.0); Carbon Dioxide 27 mmol/L (20-31); Potassium 3.7 mmol/L (3.5-5.1)
[2024-07-22 07:06] LABS: Alanine Aminotransferase 58 U/L (7-40); Albumin 2.7 g/dL (3.2-4.8); Alkaline Phosphatase 711 U/L (46-116); Bilirubin, Total 3.4 mg/dL (0.2-1.0); Blood Urea Nitrogen 43 mg/dL (9-23); Calcium 8.3 mg/dL (8.7-10.4); Chloride 112 mmol/L (98-107); Glucose 128 mg/dL (74-106); Sodium 148 mmol/L (136-145); Total Protein 4.1 g/dL (5.7-8.2)
[2024-07-22] MEDS: FREE WATER PO SCH (12:00)
--- NOTE | 2024-07-22 12:03 | DVHPNRES ---
Progress Note Date Seen: Jul 22, 2024 Resident Creating Document: HUMPHREY CASTELAN RESIDENT Medical Necessity Reason Pt with a Central, PICC or Fol: No Subjective Review of Systems Patient seen and examined at bedside, patient is still on all days 2 L of oxygen and feeling of mild shortness of breath, patient is feeling much better than before. Objective vital signs Vital Sign Date Time Temp Pulse Resp B/P (MAP) Pulse Ox O2 Delivery O2 Flow Rate FiO2 07/22/24 10:00 95 Nasal Cannula* 2 28 07/22/24 09:37 72 144/76 07/22/24 08:30 97.8 16 97.8 Total Intake and Output 07/21/24 07/21/24 07/22/24 15:00 23:00 07:00 Intake Total 1550 ml 1650 ml Output Total 300 ml 450 ml Balance 1250 ml 1200 ml medications Current Medications Medications Dose Ordered Sig/Scarlet Route Start Time Stop Time Status Last Admin Dose Admin Ceftriaxone Sodium 50 ml @ 100 mls/hr DAILY@09 IV 07/20/24 09:00 07/22/24 09:36 100 MLS/HR Azithromycin 250 ml @ 125 mls/hr DAILY IV 07/20/24 10:00 07/22/24 09:36 125 MLS/HR Amiodarone HCl 200 mg Q12HR PO 07/20/24 10:00 07/22/24 09:36 200 MG Pantoprazole Sodium 40 mg DAILY@0600 PO 07/20/24 06:00 07/22/24 05:14 40 MG Apixaban 5 mg BID PO 07/20/24 10:00 Albuterol 2.5 mg Q6HPRN PRN NEB 07/19/24 23:15 Ondansetron HCl 4 mg Q4HP PRN IV 07/19/24 23:15 Acetaminophen 650 mg Q6HP PRN PO 07/19/24 23:15 Nitroglycerin 0.4 mg Q5MINP PRN SL 07/19/24 23:15 Morphine Sulfate 2 mg Q30M PRN IV 07/19/24 23:15 Metoprolol Tartrate 25 mg BID PO 07/21/24 22:00 07/22/24 09:37 25 MG Purified Water 250 ml Q6HR PO 07/22/24 12:00 Examination GENERAL: Not in acute distress. HEENT: EOMI, Moist mucous membranes. No scleral icterus. No cervical lymphadenopathy. LUNGS: Clear to auscultation bilaterally. No accessory muscle use. CARDIOVASCULAR: Regular rate and rhythm. No murmur. No JVD. ABDOMEN: Soft, nontender and nondistended. No palpable masses. EXTREMITIES: No edema. Nontender. SKIN: No rashes or lesions. Warm. NEUROLOGIC: Alert and oriented X3 laboratory and microbiology Laboratory Tests 07/22/24 05:18 Test 07/22/24 05:18 Range/Units Serum Glucose 128 H 74-106 mg/dL Microbiology Date/Time Source Procedure Growth Status 07/20/24 17:07 Nose MRSA Screen - Final Complete 07/19/24 20:25 Blood Blood Culture - Preliminary NO GROWTH AFTER 48 HOURS OF INCUBATION. Resulted Problem List/Assessment/Plan Problem List/Assessment/Plan # Acute hypoxic respiratory failure due to Pneumonia # possible Gram-positive/Gram-negative bacterial pneumonia - CXR shows: Right basilar airspace disease concerning for pneumonia. Small right pleural effusion. - 2 L supplemental oxygen, patient was not on oxygen therapy at home. - Chest US: Small bilateral pleural effusions. - Continue Rocephin and azithromycin - Monitor oxygen saturation and continue oxygen therapy at 2 liters - Perform echocardiogram to assess cardiac function # Atrial Fibrillation, not RVR - Continue current blood thinner medication (specific medication not mentioned) - Arrange follow-up with a assistant project manager after discharge for management of heart rate and overall cardiac care # possible acute on chronic systolic/diastolic heart failure - Chest US: Small bilateral pleural effusions.. - bilateral pedal edema present, bilateral pleural effusion presents - ordered echocardiogram - request medical record from [place] - start Lasix 20 mg b.i.d. # Recent Syncope, etiology unknown, most likely due to possible hypoxic respiratory failure - Monitor fluid status and encourage oral hydration if appropriate - Assess need for home oxygen therapy before discharge # Tobacco and Alcohol Use History - Encourage continued abstinence from smoking and alcohol - Consider referral for smoking cessation support if needed # elevated liver enzyme # thrombocytopenia # possible alcoholic liver disease - ordered liver ultrasound - we will follow up labs DVT prophylaxis: Eliquis for AFib, hold Eliquis due to thrombocytopenia GI prophylaxis: PPI Goal of care discussed with patient for 21 minutes: Full code Plan discussed with Dr. STODDARD Plan discussed with: Patient My Orders My Orders Orders - HUMPHREY CASTELAN RESIDENT Procedure Category Date Status Time Free Water PHA 07/22/24 In Process 12:00 Date of Service: Jul 22, 2024 Billing Provider: LOLLY KUMAR MD Common Visit Codes: [id number] INP/OBS CARE(HIGH) HUMPHREY CASTELAN RESIDENT Jul 22, 2024 12:03 LOLLY KUMAR MD Aug 01, 2024 09:29
[2024-07-22] MEDS: FUROSEMIDE 20 MG/2 ML VIAL IV ONE (17:21)
[2024-07-22] MEDS: ONDANSETRON HCL 4 MG/2 ML VIAL IV PRN (17:21)
[2024-07-23] VITALS (12 sets, daily range): BP systolic 122–138; BP diastolic 61–85; PULSE 60–87; RESP 16–18; TEMP 97.6–98.4; O2SAT 95–100
[2024-07-23 10:48] LABS: Basophils # (auto) 0 10 ^3/uL (0-0.2); Basophils % (auto) 0.1 % (0.0-2.0); Eosinophils # (auto) 0 10 ^3/uL (0-0.8); Lymphocytes # (auto) 0.2 10 ^3/uL (0.4-5.4); Mean Corpuscular Volume 90.7 fL (80.0-100.0); Monocytes # (auto) 0.5 10 ^3/uL (0-1.3); Neutrophils # (auto) 3.7 10 ^3/uL (1.6-8.6); Nucleated Red Blood Cells % 0.1 %; Potassium 3.9 mmol/L (3.5-5.1); Red Cell Distribution Width 22.3 % (11.8-14.3); White Blood Cell 4.4 10^3/uL (4.4-10.8)
[2024-07-23 10:49] LABS: Anion Gap 8 (5-15); Carbon Dioxide 30 mmol/L (20-31)
[2024-07-23 10:50] LABS: Calcium 8.4 mg/dL (8.7-10.4); Chloride 111 mmol/L (98-107); Sodium 149 mmol/L (136-145)
[2024-07-23 10:51] LABS: Eosinophils % (auto) 0.1 % (0.0-7.0); Hematocrit 23.3 % (41.0-53.0); Hemoglobin 7.9 g/dL (13.5-17.5); Lymphocytes % (auto) 4.6 % (10.0-50.0); Mean Corpuscular Hemoglobin 30.7 pg (28.0-32.0); Mean Corpuscular Hgb Conc. 33.8 g/dL (32.0-36.0); Neutrophils % (auto) 84.2 % (37.0-80.0); Platelet Count (auto) 71 10^3/uL (140-450); Red Blood Cells 2.56 10^6/uL (4.5-5.90)
[2024-07-23 10:54] LABS: BUN/Creatinine Ratio 16.9 (10.0-20.0); Blood Urea Nitrogen 39 mg/dL (9-23); Glucose 131 mg/dL (74-106)
[2024-07-23 11:12] LABS: INR 1.56 (0.9-1.15); Prothrombin Time 15.8 sec (9.3-11.8)
[2024-07-23] MEDS: FUROSEMIDE 20 MG/2 ML VIAL IV ONE (12:13)
--- NOTE | 2024-07-23 15:19 | DVHPNRES ---
Progress Note Date Seen: Jul 23, 2024 Resident Creating Document: HUMPHREY CASTELAN RESIDENT Medical Necessity Reason Pt with a Central, PICC or Fol: No Subjective Review of Systems Patient seen and examined at bedside, feeling better. Room air ABG was not done cause patient already had ABG done on [place] last week and a prescribed concentrator. Objective vital signs Vital Sign Date Time Temp Pulse Resp B/P (MAP) Pulse Ox O2 Delivery O2 Flow Rate FiO2 07/23/24 12:13 125/72 07/23/24 10:04 75 07/23/24 10:00 95 Room Air* 0 21 07/23/24 08:30 97.7 16 97.7 Total Intake and Output 07/22/24 07/22/24 07/23/24 15:00 23:00 07:00 Intake Total 300 ml 850 ml Output Total 850 ml Balance 300 ml 0 ml medications Current Medications Medications Dose Ordered Sig/Scarlet Route Start Time Stop Time Status Last Admin Dose Admin Ceftriaxone Sodium 50 ml @ 100 mls/hr DAILY@09 IV 07/20/24 09:00 07/23/24 09:04 100 MLS/HR Azithromycin 250 ml @ 125 mls/hr DAILY IV 07/20/24 10:00 07/23/24 09:47 125 MLS/HR Amiodarone HCl 200 mg Q12HR PO 07/20/24 10:00 07/23/24 09:04 200 MG Pantoprazole Sodium 40 mg DAILY@0600 PO 07/20/24 06:00 07/23/24 04:54 40 MG Apixaban 5 mg BID PO 07/20/24 10:00 Albuterol 2.5 mg Q6HPRN PRN NEB 07/19/24 23:15 Ondansetron HCl 4 mg Q4HP PRN IV 07/19/24 23:15 07/22/24 17:21 4 MG Acetaminophen 650 mg Q6HP PRN PO 07/19/24 23:15 Nitroglycerin 0.4 mg Q5MINP PRN SL 07/19/24 23:15 Morphine Sulfate 2 mg Q30M PRN IV 07/19/24 23:15 Metoprolol Tartrate 25 mg BID PO 07/21/24 22:00 07/23/24 09:04 25 MG Purified Water 250 ml Q6HR PO 07/22/24 12:00 07/23/24 12:10 250 ML Furosemide 20 mg BIDD IV 07/23/24 18:00 Examination GENERAL: Not in acute distress. HEENT: EOMI, Moist mucous membranes. No scleral icterus. No cervical lymphadenopathy. LUNGS: Clear to auscultation bilaterally. No accessory muscle use. CARDIOVASCULAR: Regular rate and rhythm. No murmur. No JVD. ABDOMEN: Soft, nontender and nondistended. No palpable masses. EXTREMITIES: No edema. Nontender. SKIN: No rashes or lesions. Warm. NEUROLOGIC: Alert and oriented X3 laboratory and microbiology Laboratory Tests 07/23/24 10:22 Test 07/23/24 10:22 Range/Units Serum Glucose 131 H 74-106 mg/dL Microbiology Date/Time Source Procedure Growth Status 07/20/24 17:07 Nose MRSA Screen - Final Complete 07/19/24 20:25 Blood Blood Culture - Preliminary NO GROWTH AFTER 72 HOURS OF INCUBATION. Resulted Problem List/Assessment/Plan Problem List/Assessment/Plan # Acute hypoxic respiratory failure due to Pneumonia # possible Gram-positive/Gram-negative bacterial pneumonia - CXR shows: Right basilar airspace disease concerning for pneumonia. Small right pleural effusion. - 2 L supplemental oxygen, patient was not on oxygen therapy at home. - Chest US: Small bilateral pleural effusions. - Continue Rocephin and azithromycin - Monitor oxygen saturation and continue oxygen therapy at 2 liters - Perform echocardiogram to assess cardiac function # Atrial Fibrillation, not RVR - Continue current blood thinner medication (specific medication not mentioned) - Arrange follow-up with a helicopter pilot instructor after discharge for management of heart rate and overall cardiac care # possible acute on chronic systolic/diastolic heart failure - Chest US: Small bilateral pleural effusions.. - bilateral pedal edema present, bilateral pleural effusion presents - ordered echocardiogram - request medical record from [place] - start Lasix 20 mg b.i.d. # Recent Syncope, etiology unknown, most likely due to possible hypoxic respiratory failure - Monitor fluid status and encourage oral hydration if appropriate - ABG done on [place] last week and a prescribed concentrator. # Tobacco and Alcohol Use History - Encourage continued abstinence from smoking and alcohol - Consider referral for smoking cessation support if needed # elevated liver enzyme # thrombocytopenia # possible alcoholic liver disease - ordered liver ultrasound - we will follow up labs DVT prophylaxis: Eliquis for AFib, hold Eliquis due to thrombocytopenia GI prophylaxis: PPI Goal of care discussed with patient for 19 minutes: Full code Plan discussed with Dr. Mckeon Plan discussed with: Patient My Orders My Orders Orders - HUMPHREY CASTELAN Procedure Category Date Status Time Basic Metabolic Panel LAB 07/24/24 Verified 04:00 Complete Blood Count LAB 07/24/24 Verified 04:00 Furosemide Injection PHA 07/23/24 In Process (Lasix Injection) 18:00 Date of Service: Jul 23, 2024 Billing Provider: MINI MCKEON MD Common Visit Codes: [id number] INP/OBS CARE(HIGH) HUMPHREY CASTELAN RESIDENT Jul 23, 2024 15:19 MINI MCKEON MD Jul 23, 2024 22:18
[2024-07-23] MEDS: FUROSEMIDE 20 MG/2 ML VIAL IV SCH (17:34)
[2024-07-23] MEDS: ALBUTEROL SULF 2.5 MG/0.5ML(0.5%) NEB SOLN NEB PRN (19:40)
[2024-07-24] VITALS (14 sets, daily range): BP systolic 113–124; BP diastolic 61–67; PULSE 63–91; RESP 17–19; TEMP 98–98.5; O2SAT 92–100
[2024-07-24 05:21] LABS: Basophils # (auto) 0 10 ^3/uL (0-0.2); Basophils % (auto) 0.2 % (0.0-2.0); Eosinophils # (auto) 0 10 ^3/uL (0-0.8); Eosinophils % (auto) 0.1 % (0.0-7.0); Hemoglobin 7.7 g/dL (13.5-17.5); Lymphocytes # (auto) 0.2 10 ^3/uL (0.4-5.4); Monocytes # (auto) 0.5 10 ^3/uL (0-1.3)
[2024-07-24 05:22] LABS: Lymphocytes % (auto) 5.7 % (10.0-50.0); Mean Corpuscular Hgb Conc. 33.5 g/dL (32.0-36.0); Mean Corpuscular Volume 89.6 fL (80.0-100.0); Monocytes % (auto) 11.7 % (0.0-12.0); Neutrophils # (auto) 3.3 10 ^3/uL (1.6-8.6); Neutrophils % (auto) 82.3 % (37.0-80.0); Nucleated Red Blood Cells % 0.1 %; Platelet Count (auto) 78 10^3/uL (140-450); Red Blood Cells 2.57 10^6/uL (4.5-5.90)
[2024-07-24 05:32] LABS: Potassium 3.7 mmol/L (3.5-5.1)
[2024-07-24 05:33] LABS: Anion Gap 9 (5-15); Carbon Dioxide 30 mmol/L (20-31)
[2024-07-24 05:38] LABS: BUN/Creatinine Ratio 13.3 (10.0-20.0); Calcium 8.6 mg/dL (8.7-10.4); Chloride 109 mmol/L (98-107); Sodium 148 mmol/L (136-145)
[2024-07-24 05:44] LABS: Blood Urea Nitrogen 30 mg/dL (9-23); Glucose 106 mg/dL (74-106)
[2024-07-24 05:59] LABS: Red Cell Distribution Width 21.6 % (11.8-14.3)
--- NOTE | 2024-07-24 15:51 | DVHPN2 ---
Subjective Feels better Reviewed: Care Plan, H&P, Labs, Medications, Previous Orders, Radiology, Other (Consultants) Changes from previous H/P or p: No Changes Objective Vitals Vital Signs Date Time Temp Pulse Resp B/P (MAP) Pulse Ox O2 Delivery O2 Flow Rate FiO2 07/24/24 10:13 65 129/70 07/24/24 10:00 Nasal Cannula* 2 28 07/24/24 09:30 18 100 07/24/24 08:43 98.0 98.0 Intake/Output Intake and Output 07/24/24 07:00 Intake Total 1800 ml Output Total 1300 ml Balance 500 ml Intake Oral 1500 ml IV Total 300 ml Output Urine Total 1300 ml # Voids 4 # Bowel Movements 1 General Appearance: Alert, Oriented X3, Cooperative, No acute distress HEENT: Atraumatic Lungs: Other (Few crackles bilateral lungs with fair air entry and few wheezes and bibasilar areas) Cardiovascular: Regular rate, Other Abdomen: Normal bowel sounds Extremities: Other (Bilateral lower extremity edema 2+) Medications Current Medications Medications Dose Ordered Sig/Scarlet Route Start Time Stop Time Status Last Admin Dose Admin Ceftriaxone Sodium 50 ml @ 100 mls/hr DAILY@09 IV 07/20/24 09:00 07/24/24 09:12 100 MLS/HR Azithromycin 250 ml @ 125 mls/hr DAILY IV 07/20/24 10:00 07/24/24 10:08 125 MLS/HR Pantoprazole Sodium 40 mg DAILY@0600 PO 07/20/24 06:00 07/24/24 06:05 40 MG Apixaban 5 mg BID PO 07/20/24 10:00 07/24/24 09:14 5 MG Ondansetron HCl 4 mg Q4HP PRN IV 07/19/24 23:15 07/22/24 17:21 4 MG Nitroglycerin 0.4 mg Q5MINP PRN SL 07/19/24 23:15 Morphine Sulfate 2 mg Q30M PRN IV 07/19/24 23:15 Metoprolol Tartrate 25 mg BID PO 07/21/24 22:00 07/24/24 09:13 25 MG Purified Water 250 ml Q6HR PO 07/22/24 12:00 07/24/24 12:06 250 ML Furosemide 20 mg BIDD IV 07/23/24 18:00 07/24/24 06:06 20 MG Albuterol 2.5 mg Q6HR NEB 07/24/24 18:00 Laboratory Results Laboratory Tests 07/24/24 04:33 Chemistry Test 07/24/24 04:33 Calcium Level 8.6 mg/dL (8.7-10.4) L Urinalysis Test 07/20/24 09:20 Urine Color Yellow (Yellow) Urine Clarity Turbid (Clear) H Urine pH 5.0 (5.0-9.0) Urine Specific [place] 1.013 (1.001-1.035) Urine Protein Negative (Negative) Urine Ketones Negative (Negative) Urine Blood Trace /uL (Negative) H Urine Nitrite Negative (Negative) Urine Bilirubin Negative (Negative) Urine Urobilinogen Normal mg/dL (Negative) Urine Leukocyte Esterase Negative /uL (Negative) Urine RBC 1 /hpf (0 - 3) Urine Microscopic WBC 3 /HPF (0-3) Urine Squamous Epithelial Cells Few /hpf (<5) Urine Amorphous Crystals Few /hpf (None Seen) Urine Bacteria None seen /hpf (None Seen) Urine Glucose Normal mg/dL (Normal) Microbiology Microbiology Date/Time Source Procedure Growth Status 07/20/24 17:07 Nose MRSA Screen - Final Complete 07/19/24 20:25 Blood Blood Culture - Preliminary NO GROWTH AFTER 72 HOURS OF INCUBATION. Resulted Assessment/Plan Assessment/Plan Acute respiratory failure Pneumonia/on Rocephin and Zithromax Bilateral pleural effusion AFib Heart failure/diastolic dysfunction Chronic kidney disease stage 4 Possible liver cirrhosis with elevated liver function tests Thrombocytopenia Leukopenia Plan: 07/24/24/Discontinue Tylenol due to the elevated liver function tests. Discontinue amiodarone due to the same. Med nebs. Continue beta-gerardo. Increase dose if necessary to control heart rate. Repeat liver labs. Further plan per orders Plan discussed with: Patient, Other (Nursing) My Orders Orders - MINI MCKEON MD Procedure Category Date Status Time Complete Blood Count LAB 07/25/24 Verified 06:00 Comprehensive LAB 07/25/24 Verified Metabolic Panel 06:00 B-Type Natriuretic LAB 07/25/24 Verified Peptide 06:00 Date of Service: Jul 24, 2024 Billing Provider: MINI MCKEON MD Common Visit Codes: [id number] INP/OBS CARE(HIGH) MINI MCKEON MD Jul 24, 2024 15:51
--- NOTE | 2024-07-24 16:49 | DVH ---
EXAM: XY CHEST PORTABLE TECHNIQUE: Single frontal chest radiograph CLINICAL HISTORY: fu COMPARISON: XY CHEST PORTABLE on DOS: 07/19/24 Findings/Impression: Frontal chest radiograph demonstrates no acute osseous or superficial soft tissue abnormalities. The trachea is midline. The cardiac silhouette and mediastinum are within normal limits. Curvilinear lucency along the right lateral hemithorax. Favored artifact but cannot exclude a pneumot horax. Attention on follow-up. Inferior right pleural effusion with residual atelectasis and/or consolidation.
[2024-07-24] MEDS: IPRATROPIUM BROM 0.5 MG/2.5ML INH SOL NEB SCH (18:51)
[2024-07-24] MEDS: ALBUTEROL SULF 2.5 MG/0.5ML(0.5%) NEB SOLN NEB SCH (18:51)
[2024-07-25] VITALS (16 sets, daily range): BP systolic 112–133; BP diastolic 56–73; PULSE 66–90; RESP 14–20; TEMP 97.7–98.3; O2SAT 92–100
[2024-07-25 07:42] LABS: Basophils # (auto) 0 10 ^3/uL (0-0.2); Basophils % (auto) 0.4 % (0.0-2.0); Eosinophils # (auto) 0 10 ^3/uL (0-0.8); Eosinophils % (auto) 0.2 % (0.0-7.0); Hematocrit 25.9 % (41.0-53.0); Hemoglobin 8.6 g/dL (13.5-17.5); Lymphocytes # (auto) 0.2 10 ^3/uL (0.4-5.4); Lymphocytes % (auto) 6.1 % (10.0-50.0); Mean Corpuscular Hemoglobin 30.3 pg (28.0-32.0); Mean Corpuscular Hgb Conc. 33.2 g/dL (32.0-36.0); Mean Corpuscular Volume 91.2 fL (80.0-100.0); Monocytes # (auto) 0.4 10 ^3/uL (0-1.3); Monocytes % (auto) 12.1 % (0.0-12.0); Neutrophils # (auto) 2.9 10 ^3/uL (1.6-8.6); Neutrophils % (auto) 81.2 % (37.0-80.0); Platelet Count (auto) 96 10^3/uL (140-450); Red Blood Cells 2.84 10^6/uL (4.5-5.90); Red Cell Distribution Width 23.5 % (11.8-14.3); White Blood Cell 3.6 10^3/uL (4.4-10.8)
[2024-07-25 08:09] LABS: Alanine Aminotransferase 69 U/L (7-40); Anion Gap 9 (5-15); BUN/Creatinine Ratio 10.4 (10.0-20.0); Blood Urea Nitrogen 24 mg/dL (9-23); Calcium 8.9 mg/dL (8.7-10.4); Carbon Dioxide 33 mmol/L (20-31); Chloride 103 mmol/L (98-107); Glucose 108 mg/dL (74-106); Potassium 3.6 mmol/L (3.5-5.1); Sodium 145 mmol/L (136-145); Total Protein 4.7 g/dL (5.7-8.2)
[2024-07-25 08:10] LABS: Aspartate Aminotransferase 37 U/L (13-40)
[2024-07-25 08:22] LABS: Alkaline Phosphatase 1042 U/L (46-116); Bilirubin, Total 2.9 mg/dL (0.2-1.0)
[2024-07-25 08:24] LABS: Albumin 3.1 g/dL (3.2-4.8)
--- NOTE | 2024-07-25 10:20 | DVH ---
EXAM: XY CHEST TWO VIEWS ROUTINE CLINICAL HISTORY: fu COMPARISON: None TECHNIQUE: Frontal and lateral view of the chest was obtained FINDINGS: Lines and Tubes: None Lungs: No focal consolidation. Pleura: Trace right pleural effusion and right basilar opacity. Cardiomediastinal contours: Unremarkable Bones: No acute osseous abnormality. IMPRESSION: Trace right pleural effusion and right basilar opacity.
--- NOTE | 2024-07-25 18:55 | DVHPNRES ---
Progress Note Date Seen: Jul 25, 2024 Resident Creating Document: HUMPHREY CASTELAN RESIDENT Medical Necessity Reason Pt with a Central, PICC or Fol: No Subjective Review of Systems Patient seen and examined at bedside, feeling better. To the CS x-ray shows: Trace right pleural effusion and right basilar opacity. Bilateral leg edema is better today. Objective vital signs Vital Sign Date Time Temp Pulse Resp B/P (MAP) Pulse Ox O2 Delivery O2 Flow Rate FiO2 07/25/24 18:35 98 Nasal Cannula 2.0 07/25/24 18:35 69 14 07/25/24 18:35 28 07/25/24 17:12 133/56 07/25/24 16:41 98.0 98.0 Total Intake and Output 07/24/24 07/24/24 07/25/24 15:00 23:00 07:00 Intake Total 50 ml 1100 ml 800 ml Output Total 500 ml 600 ml Balance 50 ml 600 ml 200 ml medications Current Medications Medications Dose Ordered Sig/Scarlet Route Start Time Stop Time Status Last Admin Dose Admin Ceftriaxone Sodium 50 ml @ 100 mls/hr DAILY@09 IV 07/20/24 09:00 07/25/24 08:40 100 MLS/HR Azithromycin 250 ml @ 125 mls/hr DAILY IV 07/20/24 10:00 07/25/24 09:58 125 MLS/HR Pantoprazole Sodium 40 mg DAILY@0600 PO 07/20/24 06:00 07/25/24 05:53 40 MG Apixaban 5 mg BID PO 07/20/24 10:00 07/25/24 08:39 5 MG Ondansetron HCl 4 mg Q4HP PRN IV 07/19/24 23:15 07/22/24 17:21 4 MG Nitroglycerin 0.4 mg Q5MINP PRN SL 07/19/24 23:15 Morphine Sulfate 2 mg Q30M PRN IV 07/19/24 23:15 Metoprolol Tartrate 25 mg BID PO 07/21/24 22:00 07/25/24 08:39 25 MG Furosemide 20 mg BIDD IV 07/23/24 18:00 07/25/24 17:12 20 MG Albuterol 2.5 mg Q6HR NEB 07/24/24 18:00 07/25/24 18:35 2.5 MG Albuterol 2.5 mg Q3HPRN PRN NEB 07/24/24 16:00 Ipratropium [place] 0.5 mg Q6HR NEB 07/24/24 18:00 07/25/24 18:35 0.5 MG Examination GENERAL: Not in acute distress. HEENT: EOMI, Moist mucous membranes. No scleral icterus. No cervical lymphadenopathy. LUNGS: Clear to auscultation bilaterally. No accessory muscle use. CARDIOVASCULAR: Regular rate and rhythm. No murmur. No JVD. ABDOMEN: Soft, nontender and nondistended. No palpable masses. EXTREMITIES: Bilateral le, nontender. SKIN: No rashes or lesions. Warm. NEUROLOGIC: Alert and oriented X3 laboratory and microbiology Laboratory Tests 07/25/24 06:37 Test 07/25/24 06:37 Range/Units Serum Glucose 108 H 74-106 mg/dL Microbiology Date/Time Source Procedure Growth Status 07/20/24 17:07 Nose MRSA Screen - Final Complete 07/19/24 20:25 Blood Blood Culture - Final NO GROWTH AFTER 5 DAYS OF INCUBATION. Complete Problem List/Assessment/Plan Problem List/Assessment/Plan # Acute hypoxic respiratory failure due to Pneumonia # possible Gram-positive/Gram-negative bacterial pneumonia - CXR shows: Right basilar airspace disease concerning for pneumonia. Small right pleural effusion. - 1 L supplemental oxygen, patient was not on oxygen therapy at home. - Chest US: Small bilateral pleural effusions. - Continue Rocephin and azithromycin - Monitor oxygen saturation and continue oxygen therapy at 1 liters - Perform echocardiogram to assess cardiac function # Atrial Fibrillation, not RVR - Eliquis was on hold because of thrombocytopenia, today platelet is 96 - Continue Eliquis 5 mg b.i.d. - follow-up with a vineyard tender after discharge for management of heart rate and overall cardiac care # possible acute on chronic systolic/diastolic heart failure - Chest US: Small bilateral pleural effusions.. - bilateral pedal edema present, bilateral pleural effusion presents - echocardiogram: EF of 60%, LV and RV normal, all valves are normal - request medical record from [facility] - Cont. Lasix 20 mg b.i.d. # Recent Syncope, etiology unknown, most likely due to possible hypoxic respiratory failure - Monitor fluid status and encourage oral hydration if appropriate - ABG done on [facility] last week and a prescribed concentrator. # Tobacco and Alcohol Use History - Encourage continued abstinence from smoking and alcohol - Consider referral for smoking cessation support if needed # Elevated liver enzyme # Thrombocytopenia # possible alcoholic liver disease - liver ultrasound: Echogenic liver which can be seen with hepatic steatosis, cirrhosis. Hepatomegaly - we will follow up labs DVT prophylaxis: Eliquis for AFib, hold Eliquis due to thrombocytopenia GI prophylaxis: PPI Goal of care discussed with patient for 21 minutes: Full code Plan discussed with Dr. Garcia. Plan discussed with: Patient Dietary Evaluation Review Comments: 1) Consider vitamin B1 @ 100 mg qd and vitamin B9 @ 600 mg qd d/t ETOH abuse 2) Initiate MVI @ 1 tb qd 3) Encourage optimal PO intake 4) Refer to social servies r/t ETOH and tobacco cessation 5) Follow-up with cardiology/pulmonology and nephrology 6) Continue to monitor I&O, labs, and skin integrity Expected Outcomes/Goals: 1) appetite and labs to improve 2) f/u in 3-5 days Date of Service: Jul 25, 2024 Billing Provider: DIAZ GARCIA MD Common Visit Codes: [id number] INP/OBS CARE(HIGH) HUMPHREY CASTELAN RESIDENT Jul 25, 2024 18:55 DIAZ GARCIA MD Jul 25, 2024 22:51
[2024-07-26] VITALS (20 sets, daily range): BP systolic 111–132; BP diastolic 62–82; PULSE 68–81; RESP 15–18; TEMP 97.7–98.6; O2SAT 91–100
[2024-07-26 07:19] LABS: Basophils # (auto) 0 10 ^3/uL (0-0.2); Basophils % (auto) 0.5 % (0.0-2.0); Eosinophils # (auto) 0 10 ^3/uL (0-0.8); Eosinophils % (auto) 0.1 % (0.0-7.0); Hematocrit 23.9 % (41.0-53.0); Lymphocytes # (auto) 0.2 10 ^3/uL (0.4-5.4); Lymphocytes % (auto) 6.9 % (10.0-50.0); Mean Corpuscular Hemoglobin 30.6 pg (28.0-32.0); Mean Corpuscular Hgb Conc. 33.5 g/dL (32.0-36.0); Mean Corpuscular Volume 91.4 fL (80.0-100.0); Monocytes # (auto) 0.4 10 ^3/uL (0-1.3); Monocytes % (auto) 13.9 % (0.0-12.0); Neutrophils # (auto) 2.2 10 ^3/uL (1.6-8.6); Neutrophils % (auto) 78.6 % (37.0-80.0); Red Blood Cells 2.62 10^6/uL (4.5-5.90); White Blood Cell 2.8 10^3/uL (4.4-10.8)
[2024-07-26 07:24] LABS: Platelet Count (auto) 96 10^3/uL (140-450)
[2024-07-26 07:34] LABS: Anion Gap 8 (5-15); Chloride 102 mmol/L (98-107); Potassium 3.6 mmol/L (3.5-5.1); Sodium 144 mmol/L (136-145)
[2024-07-26 07:35] LABS: Calcium 8.7 mg/dL (8.7-10.4)
[2024-07-26 07:36] LABS: Carbon Dioxide 34 mmol/L (20-31)
[2024-07-26 07:40] LABS: BUN/Creatinine Ratio 10.1 (10.0-20.0); Blood Urea Nitrogen 22 mg/dL (9-23); Glucose 103 mg/dL (74-106)
--- NOTE | 2024-07-26 15:31 | DVHPNRES ---
Progress Note Date Seen: Jul 26, 2024 Resident Creating Document: HUMPHREY CASTELAN RESIDENT Medical Necessity Reason Pt with a Central, PICC or Fol: No Subjective Review of Systems Patient seen and examined at bedside, feeling better. Patient is on 2 L oxygen. Objective vital signs Vital Sign Date Time Temp Pulse Resp B/P (MAP) Pulse Ox O2 Delivery O2 Flow Rate FiO2 07/26/24 13:00 98.3 75 18 111/67 (82) 91 98.3 07/26/24 11:57 Nasal Cannula 2.0 07/26/24 11:57 28 Total Intake and Output 07/25/24 07/25/24 07/26/24 15:00 23:00 07:00 Intake Total 300 ml 900 ml 520 ml Output Total 600 ml 250 ml Balance 300 ml 300 ml 270 ml medications Current Medications Medications Dose Ordered Sig/Scarlet Route Start Time Stop Time Status Last Admin Dose Admin Ceftriaxone Sodium 50 ml @ 100 mls/hr DAILY@09 IV 07/20/24 09:00 07/26/24 08:30 100 MLS/HR Azithromycin 250 ml @ 125 mls/hr DAILY IV 07/20/24 10:00 07/26/24 10:00 125 MLS/HR Pantoprazole Sodium 40 mg DAILY@0600 PO 07/20/24 06:00 07/26/24 06:02 40 MG Apixaban 5 mg BID PO 07/20/24 10:00 07/26/24 08:30 5 MG Ondansetron HCl 4 mg Q4HP PRN IV 07/19/24 23:15 07/22/24 17:21 4 MG Nitroglycerin 0.4 mg Q5MINP PRN SL 07/19/24 23:15 Morphine Sulfate 2 mg Q30M PRN IV 07/19/24 23:15 Metoprolol Tartrate 25 mg BID PO 07/21/24 22:00 07/26/24 09:20 25 MG Furosemide 20 mg BIDD IV 07/23/24 18:00 07/26/24 06:02 20 MG Albuterol 2.5 mg Q6HR NEB 07/24/24 18:00 07/26/24 11:56 2.5 MG Albuterol 2.5 mg Q3HPRN PRN NEB 07/24/24 16:00 Ipratropium [place] 0.5 mg Q6HR NEB 07/24/24 18:00 07/26/24 11:56 0.5 MG Examination GENERAL: Not in acute distress. HEENT: EOMI, Moist mucous membranes. No scleral icterus. No cervical lymphadenopathy. LUNGS: Clear to auscultation bilaterally. No accessory muscle use. CARDIOVASCULAR: Regular rate and rhythm. No murmur. No JVD. ABDOMEN: Soft, nontender and nondistended. No palpable masses. EXTREMITIES: Bilateral le, nontender. SKIN: No rashes or lesions. Warm. NEUROLOGIC: Alert and oriented X3 laboratory and microbiology Laboratory Tests 07/26/24 06:25 Test 07/26/24 06:25 Range/Units Serum Glucose 103 74-106 mg/dL Microbiology Date/Time Source Procedure Growth Status 07/20/24 17:07 Nose MRSA Screen - Final Complete 07/19/24 20:25 Blood Blood Culture - Final NO GROWTH AFTER 5 DAYS OF INCUBATION. Complete Problem List/Assessment/Plan Problem List/Assessment/Plan # Acute hypoxic respiratory failure due to Pneumonia # possible Gram-positive/Gram-negative bacterial pneumonia - CXR shows: Right basilar airspace disease concerning for pneumonia. Small right pleural effusion. - 2 L supplemental oxygen, patient was not on oxygen therapy at home. - Chest US: Small bilateral pleural effusions. - Continue Rocephin and azithromycin - Monitor oxygen saturation and continue oxygen therapy at 2 liters - Perform echocardiogram to assess cardiac function # Atrial Fibrillation, not RVR - Eliquis was on hold because of thrombocytopenia, today platelet is 96 - Continue Eliquis 5 mg b.i.d. - follow-up with a stick roller after discharge for management of heart rate and overall cardiac care # possible acute on chronic systolic/diastolic heart failure - Chest US: Small bilateral pleural effusions.. - bilateral pedal edema present, bilateral pleural effusion presents - echocardiogram: EF of 60%, LV and RV normal, all valves are normal - Cont. Lasix 20 mg b.i.d. # Recent Syncope, etiology unknown, most likely due to possible hypoxic respiratory failure - Monitor fluid status and encourage oral hydration if appropriate - ABG done on [place] last week and a prescribed concentrator. # Tobacco and Alcohol Use History - Encourage continued abstinence from smoking and alcohol - Consider referral for smoking cessation support if needed # Elevated liver enzyme # Thrombocytopenia # possible alcoholic liver disease - liver ultrasound: Echogenic liver which can be seen with hepatic steatosis, cirrhosis. Hepatomegaly - we will follow up labs DVT prophylaxis: Eliquis for AFib, hold Eliquis due to thrombocytopenia GI prophylaxis: PPI Goal of care discussed with patient for 16 minutes: Full code Plan discussed with Dr. Garcia. Plan discussed with: Patient Dietary Evaluation Review Comments: 1) Consider vitamin B1 @ 100 mg qd and vitamin B9 @ 600 mg qd d/t ETOH abuse 2) Initiate MVI @ 1 tb qd 3) Encourage optimal PO intake 4) Refer to social servies r/t ETOH and tobacco cessation 5) Follow-up with cardiology/pulmonology and nephrology 6) Continue to monitor I&O, labs, and skin integrity Expected Outcomes/Goals: 1) appetite and labs to improve 2) f/u in 3-5 days Date of Service: Jul 26, 2024 Billing Provider: DIAZ GARCIA MD Common Visit Codes: [id number] INP/OBS CARE(HIGH) HUMPHREY CASTELAN RESIDENT Jul 26, 2024 15:31 DIAZ GARCIA MD Jul 26, 2024 21:34
[2024-07-27] VITALS (13 sets, daily range): BP systolic 110–146; BP diastolic 65–93; PULSE 66–82; RESP 16–20; TEMP 98–99.8; O2SAT 91–100
[2024-07-27 07:35] LABS: Mean Corpuscular Hemoglobin 31.1 pg (28.0-32.0); Mean Corpuscular Hgb Conc. 34.1 g/dL (32.0-36.0)
[2024-07-27 07:38] LABS: Hematocrit 24.4 % (41.0-53.0); Hemoglobin 8.3 g/dL (13.5-17.5); Mean Corpuscular Volume 91.3 fL (80.0-100.0); Red Blood Cells 2.67 10^6/uL (4.5-5.90); White Blood Cell 2.4 10^3/uL (4.4-10.8)
[2024-07-27 07:45] LABS: Platelet Count (auto) 104 10^3/uL (140-450); Red Cell Distribution Width 23.1 % (11.8-14.3)
[2024-07-27 07:46] LABS: Band Neutrophils % (manual) 0; Basophils % (manual) 0 (0.0-2.0); Blast Cells 0; Eosinophils % (manual) 0 (0-7); Metamyelocytes % 0; Myelocytes % 0; Promyelocytes % 0; Reactive Lymphocytes 0
[2024-07-27 07:56] LABS: Anion Gap 7 (5-15); Carbon Dioxide 32 mmol/L (20-31); Chloride 102 mmol/L (98-107); Potassium 3.8 mmol/L (3.5-5.1); Sodium 141 mmol/L (136-145)
[2024-07-27 07:57] LABS: Calcium 8.8 mg/dL (8.7-10.4)
[2024-07-27 08:02] LABS: BUN/Creatinine Ratio 9.3 (10.0-20.0); Blood Urea Nitrogen 20 mg/dL (9-23); Glucose 100 mg/dL (74-106)
[2024-07-27] MEDS ORDERED: FURO20TA3 PO (11:30)
[2024-07-27] MEDS ORDERED: AUG875T PO (11:30)
[2024-07-27 11:43] LABS: Lymphocytes % (manual) 11 (10.0-50.0); Monocytes % (manual) 12 (0-12); Platelet Estimate Decreased
[2024-07-27] MEDS: ALBUTEROL SULF 2.5 MG/0.5ML(0.5%) NEB SOLN NEB PRN (14:56)
--- NOTE | 2024-07-27 16:29 | DVHDSRES ---
Discharge Summary Date of Admission Resident Creating Document: HUMPHREY CASTELAN RESIDENT Jul 19, 2024 at 23:05 Date of Discharge: Jul 27, 2024 Admitting Diagnosis Shortness of breath, pneumonia Labs/Diagnostic Data: Laboratory Results Test 07/27/24 07:06 07/26/24 06:25 07/25/24 06:37 07/23/24 10:22 White Blood Count 2.4 10^3/uL (4.4-10.8) Red Blood Count 2.67 10^6/uL (4.5-5.90) Hemoglobin 8.3 g/dL (13.5-17.5) Hematocrit 24.4 % (41.0-53.0) Mean Corpuscular Volume 91.3 fL (80.0-100.0) Mean Corpuscular Hemoglobin 31.1 pg (28.0-32.0) Mean Corpuscular Hemoglobin Concent 34.1 g/dL (32.0-36.0) Red Cell Distribution Width 23.1 % (11.8-14.3) Platelet Count 104 10^3/uL (140-450) Mean Platelet Volume 8.2 fL (6.9-10.8) Neutrophils (%) (Auto) % (37.0-80.0) Lymphocytes (%) (Auto) % (10.0-50.0) Monocytes (%) (Auto) % (0.0-12.0) Basophils (%) (Auto) % (0.0-2.0) Neutrophils # (Auto) 10 ^3/uL (1.6-8.6) Lymphocytes # (Auto) 10 ^3/uL (0.4-5.4) Monocytes # (Auto) 10 ^3/uL (0-1.3) Differential Total Cells Counted 100.0 (100) Neutrophils % (Manual) 77 (37.0-80.0) Band Neutrophils % (Manual) 0 Lymphocytes % (Manual) 11 (10.0-50.0) Monocytes % (Manual) 12 (0-12) Eosinophils % (Manual) 0 (0-7) Basophils % (Manual) 0 (0.0-2.0) Metamyelocytes % (manual) 0 Myelocytes % (Manual) 0 Promyelocytes % (Manual) 0 Blast Cells % (Manual) 0 Reactive Lymphocytes 0 Platelet Estimate Decreased Sodium Level 141 mmol/L (136-145) Potassium Level 3.8 mmol/L (3.5-5.1) Chloride Level 102 mmol/L (98-107) Carbon Dioxide Level 32 mmol/L (20-31) Anion Gap 7 (5-15) Blood Urea Nitrogen 20 mg/dL (9-23) Creatinine 2.16 mg/dL (0.700-1.30) Glomerular Filtration Rate Calc 32 mL/min (>90) BUN/Creatinine Ratio 9.3 (10.0-20.0) Serum Glucose 100 mg/dL (74-106) Calcium Level 8.8 mg/dL (8.7-10.4) Eosinophils (%) (Auto) 0.1 % (0.0-7.0) Eosinophils # (Auto) 0 10 ^3/uL (0-0.8) Basophils # (Auto) 0 10 ^3/uL (0-0.2) Nucleated Red Blood Cells 0.0 % Total Bilirubin 2.9 mg/dL (0.2-1.0) Aspartate Amino Transferase (AST) 37 U/L (13-40) Alanine Aminotransferase (ALT) 69 U/L (7-40) Alkaline Phosphatase 1042 U/L (46-116) B-Type Natriuretic Peptide 206.11 pg/mL (0-100) Total Protein 4.7 g/dL (5.7-8.2) Albumin 3.1 g/dL (3.2-4.8) Prothrombin Time 15.8 sec (9.3-11.8) Prothrombin Time INR 1.56 (0.9-1.15) Ammonia < 10 umol/L (11-32) Test 07/20/24 17:07 07/20/24 09:20 07/20/24 05:20 07/19/24 22:15 Influenza Type A Antigen Negative (Negative) Influenza Type B Antigen Negative (Negative) SARS-CoV-2 Antigen (Rapid) Negative (NEGATIVE) Urine Color Yellow (Yellow) Urine Clarity Turbid (Clear) Urine pH 5.0 (5.0-9.0) Urine Specific [place] 1.013 (1.001-1.035) Urine Protein Negative (Negative) Urine Ketones Negative (Negative) Urine Blood Trace /uL (Negative) Urine Nitrite Negative (Negative) Urine Bilirubin Negative (Negative) Urine Urobilinogen Normal mg/dL (Negative) Urine Leukocyte Esterase Negative /uL (Negative) Urine RBC 1 /hpf (0 - 3) Urine Microscopic WBC 3 /HPF (0-3) Urine Squamous Epithelial Cells Few /hpf (<5) Urine Amorphous Crystals Few /hpf (None Seen) Urine Bacteria None seen /hpf (None Seen) Urine Glucose Normal mg/dL (Normal) Troponin I High Sensitivity 50 ng/L (</=54) Lactic Acid Level 2.8 mmol/L (0.4-2.0) Test 07/19/24 20:25 07/19/24 20:15 Large Platelets Few Hypochromasia (manual) Slight Anisocytosis (manual) Slight Target Cells Few Activated Partial Thromboplast Time 44.7 SEC (24.5-34.5) Blood Gas Specimen Type Venous Blood Gas Sample Site Vbg - n/a Blood Gas Patient Temperature 37.0 Arterial Blood Date Drawn [id number] [place]ight Test N/a Venous Blood pH 7.345 (7.320-7.430) Venous Blood pCO2 at Patient Temp 39.3 mmHg (38.0-54.0) Venous Blood pO2 at Patient Temp < 36.5 mmHg (23.0-48.0) Venous Blood HCO3 21.0 mmol/L (22.0-29.0) Venous Blood Base Excess -4.3 mmol/L (-2.0-3.0) Blood Gas Liter Flow 0.00 Blood Gas Modality Room air Blood Gas Spontaneous Rate 18 FiO2 % 21.0 Specimen Drawn By Fauzia leyva rn Other Laboratory Tests 07/27/24 07:06 Brief Hx & Hospital Course: HPI: 73 M with a history of atrial fibrillation who presents with recent hospitalization for chest pain and newly diagnosed pneumonia. The patient was discharged from [facility] after a 5-day stay earlier this week but had to be readmitted due to a syncopal episode. He reports experiencing chest pain, which prompted the initial hospitalization at [facility]. During that stay, pneumonia was diagnosed, After discharge, while being picked up by his nephew and a friend, the patient experienced a blackout episode near their apartment. This led to calling an ambulance and subsequent readmission to the hospital. Summary: Patient was diagnosed with pneumonia, bilateral pleural effusion, diastolic heart failure, patient was on 2 L oxygen, patient has home oxygen 2 L. patient was treated with IV Rocephin and IV azithromycin, we also started Lasix for fluid overload, repeat x-ray shows pneumonia improved, bilateral pleural effusion improved, bilateral leg edema improved. Two the patient is feeling better breathing on 2 L oxygen no shortness of bread, low fever chills, no signs symptoms of pneumonia noted. Patient is hemodynamically stable and going to be discharged home with Augmentin 875 mg b.i.d. for seven days advised patient to follow up with PCP in 1-2 weeks. Condition at Discharge: Fair Final Diagnosis/Problems List # Acute hypoxic respiratory failure due to Pneumonia # possible Gram-positive/Gram-negative bacterial pneumonia, # Atrial Fibrillation, not RVR, # possible acute on chronic diastolic heart failure, # Recent Syncope, etiology unknown, most likely due to possible hypoxic respiratory failure, # Tobacco and Alcohol Use History, # Elevated liver enzyme, # Thrombocytopenia, # possible alcoholic liver disease Discharge Disposition: Home SNF Discharge Will this Physician continue t: No Discharge Instruct/Medications Diet: Cardiac 2g Na,low cholest Activity: No Restrictions, As Tolerated Follow Up/Referral: Follow up with mop man as scheduled Follow up with PCP in 1-2 weeks Medications: Augmentin 875 mg b.i.d. for five days Furosemide 20 mg daily for 10 days Continue other home medications Discharge Statement: "Patient was advised to return to the ER or call 911 if any headaches, dizziness, shortness of breath, chest pain, abdominal pain, bleeding, fevers, or worsening of medical condition. Patient was counseled about treatment plan, medications, possible side effects, patientverbalized understanding. All questions were answered to the best of my ability. This discharge took greater then 30 minutes in planning, reviewing documentation, counseling the patient, and discussing with other team members." ASSESSMENT ASSESSMENT Assessment # Acute hypoxic respiratory failure due to Pneumonia # possible Gram-positive/Gram-negative bacterial pneumonia, # Atrial Fibrillation, not RVR, # possible acute on chronic diastolic heart failure, # Recent Syncope, etiology unknown, most likely due to possible hypoxic respiratory failure, # Tobacco and Alcohol Use History, # Elevated liver enzyme, # Thrombocytopenia, # possible alcoholic liver disease Date of Service: Jul 27, 2024 Billing Provider: DIAZ VELEZ MD Common Visit Codes: [id number] DISCH DAY >30min HUMPHREY CASTELAN RESIDENT Jul 27, 2024 16:29 DIAZ VELEZ MD Jul 27, 2024 21:23
== END 2024-07-27 16:56 | disposition home or self-care (01) | DRG 177 ==
LOC: EDBD 19:59 → ER 20:05 → OVERFLOW 23:05 → TELE-WESTW 07-20 14:52
PROVIDERS: ADMIT Internal Medicine Geriatric Medicine; ATTEND Emergency Medicine
DX: J15.69 Pneumonia due to other Gram-negative bacteria (principal); I50.33 Acute on chronic diastolic (congestive) heart failure; J96.01 Acute respiratory failure with hypoxia; N17.9 Acute kidney failure, unspecified; D68.9 Coagulation defect, unspecified; N18.4 Chronic kidney disease, stage 4 (severe); I13.0 Hypertensive heart and chronic kidney disease with heart failure and stage 1 through stage 4 chronic kidney disease, or unspecified chronic kidney disease; J15.9 Unspecified bacterial pneumonia; I48.91 Unspecified atrial fibrillation; F17.210 Nicotine dependence, cigarettes, uncomplicated; D69.6 Thrombocytopenia, unspecified; R74.8 Abnormal levels of other serum enzymes; Z20.822 Contact with and (suspected) exposure to COVID-19
CPT/HCPCS: 36415; 36600; 71045; 71046; 76604; 76705; 80048; 80053; 81001; 82140; 82805; 83605; 83880; 84484; 85007; 85025; 85027; 85610; 85730; 87040; 87081; 87426; 87804; 93005; 93306; 94640; 96365; 99291; G0378; J2405